=== PATIENT | female | born 1940 | race Two or more races ===

== ENCOUNTER 2022-05-17 18:26 | Inpatient (IN) | payer MEDICARE, BC ==
--- NOTE | 2022-05-17 18:51 | ED ---
Altered Mental Status HPI - General Stated Complaint: hypothermia Source: EMS Mode of arrival: EMS Limitations: altered mental status - History of Present Illness Initial Comments: This patient is an 82-year-old woman brought by EMS to have evaluation for altered mental status. The patient reportedly observed lying on the ground by a neighbor. Patient found by EMS personnel to be in wet clothing, attempting to crawl. Patient's not giving any verbal responses. The down time unknown however patient does feel cold to touch per ambulance personnel. MD Complaint: altered mental status -: unknown Severity: severe Consistency of Symptoms: constant Context: unknown - Related Data Home Medications Medication Instructions Recorded Confirmed Atorvastatin [Lipitor] 20 mg PO HS 05/17/22 05/17/22 Clopidogrel [Plavix] 75 mg PO DAILY 05/17/22 05/17/22 Furosemide [Lasix] 20 mg PO DAILY 05/17/22 05/17/22 carvediloL [Coreg] 6.25 mg PO BID-W/MEALS 05/17/22 05/17/22 lisinopriL [Zestril] 10 mg PO DAILY 05/17/22 05/17/22 Previous Rx's Medication Instructions Recorded ALPRAZolam [Xanax] 0.5 mg PO TID PRN #9 tablet 05/23/22 Acetaminophen Tab [Tylenol] 1,000 mg PO Q6HR PRN tab 05/23/22 Artificial Tears-Hypromellose 1 drops BOTH EYES Q4HR PRN ml 05/23/22 [Artificial Tear Drops] Ascorbic Acid [Vitamin C] 500 mg PO DAILY tab 05/23/22 Cholecalciferol [Vitamin D3 (10 10 mcg PO DAILY tab 05/23/22 Mcg = 400 Iu)] Famotidine [Pepcid] 20 mg PO BID tab 05/23/22 Folic Acid 1 mg PO DAILY tab 05/23/22 Psyllium Husk 100% [Metamucil 6 gm PO BID PRN packet 05/23/22 Packet] Sodium Chloride Tab 1 gm PO BID tab 05/23/22 Zinc Sulfate [Orazinc] 220 mg PO DAILY cap 05/23/22 metFORMIN HCL [Glucophage] 500 mg PO BID-W/MEALS tab 05/23/22 Allergies Allergy/AdvReac Type Severity Reaction Status Date / Time heparin AdvReac Swelling Verified 05/22/22 08:55 Review of Systems ROS Statement: Those systems with pertinent positive or pertinent negative responses have been documented in the HPI. ROS Other: All systems not noted in ROS Statement are negative. Limitations: ROS unobtainable due to patients medical condition General Exam Limitations: no limitations General appearance: obtunded, other (Patient arrives covered in blankets. Her clothing had been removed by EMS personnel as she was very wet. Patient not responding to questions or commands.) Head exam: Present: other (Patient has facial abrasions) Eye exam: Present: PERRL, EOMI, nystagmus. Absent: scleral icterus, conjunctival injection Neck exam: Present: normal inspection, other (In cervical collar) Respiratory exam: Present: rhonchi. Absent: wheezes, rales, stridor, accessory muscle use, decreased breath sounds, prolonged expiratory Cardiovascular Exam: Present: bradycardia, irregular rhythm, systolic murmur. Absent: diastolic murmur, rubs, gallop GI/Abdominal exam: Present: soft. Absent: distended, tenderness, guarding, rebound, rigid, mass Extremities exam: Present: full ROM, other (Abrasions). Absent: tenderness, pedal edema, calf tenderness Back exam: Present: normal inspection. Absent: vertebral tenderness Neurological exam: Present: altered. Absent: motor sensory deficit Expanded Eye Response: (4) open spontaneously Motor Response: (5) localizes to pain Verbal Response: incomprehensible sounds Skin exam: Present: mottled, abrasion, other (Patient is cold, skin is moist. There are multiple abrasions to all 4 extremities as well as abdomen and face.) Course Vital Signs 05/17/22 05/17/22 05/17/22 18:46 20:39 20:45 Temperature 79.9 F L 93.6 F L Pulse Rate 53 L 51 L 58 L Respiratory 18 11 L 17 Rate Blood Pressure 108/88 155/100 155/100 O2 Sat by Pulse 98 100 100 Oximetry 05/17/22 05/17/22 05/17/22 20:54 21:00 21:15 Temperature 84.4 F L Pulse Rate 57 L 61 63 Respiratory 18 19 21 Rate Blood Pressure 137/79 137/79 129/78 O2 Sat by Pulse 95 96 99 Oximetry 05/17/22 05/17/22 05/17/22 21:30 21:45 22:00 Temperature Pulse Rate 66 65 65 Respiratory 17 17 16 Rate Blood Pressure 137/69 111/67 131/60 O2 Sat by Pulse 96 100 85 L Oximetry 05/17/22 05/17/22 05/17/22 22:15 22:30 22:45 Temperature Pulse Rate 69 76 73 Respiratory 11 L 18 21 Rate Blood Pressure 90/60 91/53 113/68 O2 Sat by Pulse 97 96 96 Oximetry 05/17/22 05/17/22 05/17/22 23:00 23:14 23:15 Temperature 90.9 F L Pulse Rate 71 75 73 Respiratory 17 18 16 Rate Blood Pressure 104/68 100/64 100/64 O2 Sat by Pulse 98 94 L 96 Oximetry - Reevaluation(s) Reevaluation #1: 05/17/22 22:18 Patient's family member had arrived and stated that she had not been feeling well for number days prior to this episode. Patient reportedly having cough, generalized weakness and fatigue. She had been encouraged to take a covid test on Sunday but did not do so. Medical Decision Making - Lab Data Result diagrams: 05/23/22 06:49 05/23/22 06:49 Lab Results 05/17/22 05/17/22 05/17/22 Range/Units 19:08 19:08 19:08 WBC 4.1 (3.8-10.6) k/uL RBC 3.68 L (3.80-5.40) m/uL Hgb 12.7 (11.4-16.0) gm/dL Hct 34.0 (34.0-46.0) % MCV 92.3 (80.0-100.0) fL MCH 34.4 (25.0-35.0) pg MCHC 37.3 H (31.0-37.0) g/dL RDW 12.1 (11.5-15.5) % Plt Count 224 (150-450) k/uL MPV 7.1 Neutrophils % 79 % Lymphocytes % 9 % Monocytes % 9 % Eosinophils % 0 % Basophils % 2 % Neutrophils # 3.2 (1.3-7.7) k/uL Lymphocytes # 0.4 L (1.0-4.8) k/uL Monocytes # 0.4 (0-1.0) k/uL Eosinophils # 0.0 (0-0.7) k/uL Basophils # 0.1 (0-0.2) k/uL PT 12.1 H (9.0-12.0) sec INR 1.1 (<1.2) APTT 28.8 (22.0-30.0) sec Sodium 113 L* (137-145) mmol/L Potassium 4.7 (3.5-5.1) mmol/L Chloride 87 L (98-107) mmol/L Carbon Dioxide 17 L (22-30) mmol/L Anion Gap 9 mmol/L BUN 25 H (7-17) mg/dL Creatinine 0.64 (0.52-1.04) mg/dL Est GFR (CKD-EPI)AfAm >90 (>60 ml/min/1.73 sqM) Est GFR (CKD-EPI)NonAf 82 (>60 ml/min/1.73 sqM) Glucose 202 H (74-99) mg/dL Osmolality (280-301) mosm/kg Calcium 7.4 L (8.4-10.2) mg/dL Total Bilirubin 0.6 (0.2-1.3) mg/dL AST 38 H (14-36) U/L ALT 25 (4-34) U/L Alkaline Phosphatase 58 (38-126) U/L Creatine Kinase 634 H (30-135) U/L CK-MB (CK-2) (0.0-2.4) ng/mL Troponin I (0.000-0.034) ng/mL Total Protein 5.1 L (6.3-8.2) g/dL Albumin 3.1 L (3.5-5.0) g/dL Coronavirus (PCR) (Not Detectd) 05/17/22 05/17/22 05/17/22 Range/Units 19:08 19:08 21:39 WBC (3.8-10.6) k/uL RBC (3.80-5.40) m/uL Hgb (11.4-16.0) gm/dL Hct (34.0-46.0) % MCV (80.0-100.0) fL MCH (25.0-35.0) pg MCHC (31.0-37.0) g/dL RDW (11.5-15.5) % Plt Count (150-450) k/uL MPV Neutrophils % % Lymphocytes % % Monocytes % % Eosinophils % % Basophils % % Neutrophils # (1.3-7.7) k/uL Lymphocytes # (1.0-4.8) k/uL Monocytes # (0-1.0) k/uL Eosinophils # (0-0.7) k/uL Basophils # (0-0.2) k/uL PT (9.0-12.0) sec INR (<1.2) APTT (22.0-30.0) sec Sodium (137-145) mmol/L Potassium (3.5-5.1) mmol/L Chloride (98-107) mmol/L Carbon Dioxide (22-30) mmol/L Anion Gap mmol/L BUN (7-17) mg/dL Creatinine (0.52-1.04) mg/dL Est GFR (CKD-EPI)AfAm (>60 ml/min/1.73 sqM) Est GFR (CKD-EPI)NonAf (>60 ml/min/1.73 sqM) Glucose (74-99) mg/dL Osmolality 254 L (280-301) mosm/kg Calcium (8.4-10.2) mg/dL Total Bilirubin (0.2-1.3) mg/dL AST (14-36) U/L ALT (4-34) U/L Alkaline Phosphatase (38-126) U/L Creatine Kinase (30-135) U/L CK-MB (CK-2) 15.4 H (0.0-2.4) ng/mL Troponin I 0.018 (0.000-0.034) ng/mL Total Protein (6.3-8.2) g/dL Albumin (3.5-5.0) g/dL Coronavirus (PCR) Detected A (Not Detectd) - EKG Data -: EKG Interpreted by Oh EKG shows normal: intervals (QRS duration 178 ms, prolonged consistent with the left bundle-branch block.), QRS complexes ((Bundle-branch block pattern.) Interpretation: other (Underlying rhythm appears atrial fibrillation with slow ventricular response.) Critical Care Time Critical Care Time: Yes (45 minutes) Disposition Clinical Impression: Hyponatremia, Hypothermia, Altered mental status, Hyperglycemia, COVID-19 Disposition: ADMITTED IP TO THIS [facility] Condition: Critical Is patient prescribed a controlled substance at d/c from ED?: No
[2022-05-17 19:27] LABS: INR 1.1 (<1.2); Partial Thromboplastin Time 28.8 sec (22.0-30.0); Prothrombin Time 12.1 sec (9.0-12.0)
[2022-05-17 19:28] LABS: ALT 25 U/L (4-34); AST 38 U/L (14-36); African American GFR (CKD) >90 (>60 ml/min/1.73 sqM); Albumin 3.1 g/dL (3.5-5.0); Alkaline Phosphatase 58 U/L (38-126); Anion Gap 9 mmol/L; Blood Urea Nitrogen 25 mg/dL (7-17); Calcium 7.4 mg/dL (8.4-10.2); Carbon Dioxide 17 mmol/L (22-30); Chloride 87 mmol/L (98-107); Creatine Kinase 634 U/L (30-135); Glucose 202 mg/dL (74-99); Non-African American GFR(CKD) 82 (>60 ml/min/1.73 sqM); Potassium 4.7 mmol/L (3.5-5.1); Total Bilirubin 0.6 mg/dL (0.2-1.3); Total Protein 5.1 g/dL (6.3-8.2)
[2022-05-17 19:32] LABS: Basophils # (A) 0.1 k/uL (0-0.2); Basophils % (A) 2 %; Eosinophils % (A) 0 %; HGB 12.7 gm/dL (11.4-16.0); Lymphocytes # (A) 0.4 k/uL (1.0-4.8); Lymphocytes % (A) 9 %; MCH 34.4 pg (25.0-35.0); MCHC 37.3 g/dL (31.0-37.0); MCV 92.3 fL (80.0-100.0); Mean Platelet Volume 7.1; Monocytes # (A) 0.4 k/uL (0-1.0); Monocytes % (A) 9 %; Neutrophils # (A) 3.2 k/uL (1.3-7.7); Neutrophils % (A) 79 %; Platelet Count 224 k/uL (150-450); RBC 3.68 m/uL (3.80-5.40); RDW 12.1 % (11.5-15.5); WBC 4.1 k/uL (3.8-10.6)
[2022-05-17 19:46] LABS: Creatine Kinase MB 15.4 ng/mL (0.0-2.4); Troponin I 0.018 ng/mL (0.000-0.034)
[2022-05-17 19:48] LABS: Sodium 113 mmol/L (137-145)
[2022-05-17] MEDS ORDERED: SODIUM CHLORIDE 0.9% 1,000 ML IV STA (19:58)
[2022-05-17] MEDS ORDERED: SODIUM CHLORIDE 0.9% 1,000 ML IV ONE (19:58)
--- NOTE | 2022-05-17 20:18 | XR ---
EXAMINATION TYPE: XR chest 1V portable DATE OF EXAM: 05/17/2022 8:04 PM COMPARISON: None TECHNIQUE: XR chest 1V portable Portable AP radiograph of the chest. CLINICAL INDICATION:Female, 82 years old with history of altered mental status; FINDINGS: Lungs/Pleura: There is no evidence of pleural effusion, focal consolidation, or pneumothorax. Pulmonary vascularity: Pulmonary vascular congestion. Heart/mediastinum: Cardiomediastinal silhouette is enlarged and stable. Musculoskeletal: Degenerative changes of the shoulder joints. IMPRESSION: Cardiomegaly and mild pulmonary vascular congestion. Correlate with BNP for congestive heart failure.
--- NOTE | 2022-05-17 20:22 | CT ---
EXAMINATION TYPE: CT brain wo con for TPA CT DLP: 1580.8 mGycm, Automated exposure control for dose reduction was used. DATE OF EXAM: 05/17/2022 8:08 PM COMPARISON: None. CLINICAL INDICATION:Female, 82 years old with history of Neuro deficit, acute, stroke suspected, TECHNIQUE: Brain: Axial CT images of the brain were obtained with coronal and sagittal reformats created and rev iewed. Contrast used: None. Oral contrast used: None. FINDINGS: Brain: Extra-axial spaces: No abnormal extra-axial fluid collections. Ventricular system: Dilatation in proportion to cerebral atrophy. Cerebral parenchyma: Cerebral atrophy. No acute intraparenchymal hemorrhage or mass effect. The whitehead -white junction is well differentiated. Scattered hypoattenuating areas are seen within the white mat ter. Cerebellum: Unremarkable. Mass effect: No evidence of midline shift. Intracranial vasculature: unremarkable Soft tissues: Left frontal soft tissue edema. Calvarium/osseous structures: No depressed skull fracture. Paranasal sinuses and mastoid air cells: Mild scattered paranasal sinus disease. Visualized orbits: Bilateral aphakia IMPRESSION: 1. No acute intracranial process. 2. Nonspecific white matter changes, likely secondary to chronic small vessel ischemic disease. 3. Left frontal soft tissue edema.
--- NOTE | 2022-05-17 20:25 | CT ---
EXAMINATION TYPE: CT cervical spine wo con CT DLP: 1580.8 mGycm, Automated exposure control for dose reduction was used. DATE OF EXAM: 05/17/2022 8:10 PM COMPARISON: None CLINICAL INDICATION:Female, 82 years old with history of fall injury, found unresponsive TECHNIQUE: Axial CT images from the skull base to the inferior aspect of T2 we obtained without intra venous contrast. Coronal and sagittal reformatted images were also reviewed. FINDINGS: Fracture: None. Osseous structures: Multilevel degenerative disc disease changes with endplate spurring and disc oste ophyte complex's. Vertebral alignment: Alignment within normal limits. Spinal canal/Neural Foramina: No evidence of significant spinal canal narrowing. No evidence for sign ificant neural foraminal stenosis. Neck soft tissues: Prevertebral soft tissues are within normal limits. Other: The airway is patent. The lung apices are clear. IMPRESSION: 1. No evidence of cervical spine fracture. 2. Mild multilevel degenerative disc disease.
--- NOTE | 2022-05-17 20:52 | CT ---
EXAMINATION TYPE: CT angio head neck CT DLP: 1580.8 mGycm, Automated exposure control for dose reduction was used. DATE OF EXAM: 05/17/2022 8:32 PM COMPARISON: CT head same day. CLINICAL INDICATION:Female, 82 years old with history of Neuro deficit, acute, stroke suspected, foun d unresponsive TECHNIQUE: Axially acquired helical CT angiogram of the head and neck was obtained with contrast. Axi al images are supplemented with 3D reconstructions which [facility] NASCET criteria used. Contrast used:65ml mL of Isovue 370 with IV Contrast, Oral contrast used: None. FINDINGS: Motion limits evaluation. CTA HEAD: No evidence of acute intracranial hemorrhage, mass effect, or midline shift. The ventricles, sulci, a nd cisterns are unremarkable. The visualized portions of the internal carotid arteries, middle cerebral arteries, anterior cerebral arteries, and posterior cerebral arteries are patent. The basilar and vertebral arteries are patent. CTA NECK: Right Carotid System: The common carotid artery and external carotid artery are patent. The carotid bifurcation demonstrate s no evidence of hemodynamically significant stenosis. The remaining portions of the internal carotid artery demonstrate normal size without significant narrowing. Left Carotid System: The common carotid artery and external carotid artery are patent. The carotid bifurcation demonstrate s no evidence of hemodynamically significant stenosis. The remaining portions of the internal carotid artery demonstrate normal size without significant narrowing. Vertebral arteries are patent without evidence hemodynamically significant stenosis. There is a three-vessel aortic arch. The origins of the great vessels are patent. No evidence of hemo dynamically significant stenosis. IMPRESSION: 1. No evidence of dissection of the cervical internal carotid arteries or vertebral arteries or any e vidence of significant stenosis at the carotid bifurcations. 2. No evidence of intracranial high-grade stenosis or intracranial aneurysm.
[2022-05-17] MEDS ORDERED: NALOXONE 0.4 MG/ML 1 ML VIAL IV PRN (22:05)
[2022-05-17] MEDS ORDERED: ACETAMINOPHEN SUPPOSITORY 650 MG SUPP RECTAL PRN (22:05)
[2022-05-17] MEDS ORDERED: ARTIFICIAL TEARS-HYPROMELLOSE DROPS 15 ML BTL BOTH EYES PRN (22:05)
[2022-05-17 23:42] LABS: Glucose,Whole Blood 116 mg/dL (70-110)
[2022-05-18] MEDS ORDERED: SODIUM CHLORIDE 3%(HYPERTONIC) 500 ML IV SCH (01:00)
[2022-05-18] MEDS: HEPARIN SODIUM,PORCINE/PF 5,000 UNIT/0.5 ML SYRINGE SQ SCH ×4 (02:08→16:03)
[2022-05-18 04:17] LABS: Basophils % (A) 0 %; Eosinophils % (A) 0 %; HCT 34.5 % (34.0-46.0); HGB 12.3 gm/dL (11.4-16.0); Lymphocytes # (A) 0.2 k/uL (1.0-4.8); Lymphocytes % (A) 2 %; MCHC 35.6 g/dL (31.0-37.0); MCV 92.5 fL (80.0-100.0); Mean Platelet Volume 7.3; Monocytes # (A) 0.5 k/uL (0-1.0); Monocytes % (A) 7 %; Neutrophils % (A) 90 %; Platelet Count 265 k/uL (150-450); RBC 3.73 m/uL (3.80-5.40); RDW 12.1 % (11.5-15.5); WBC 7.7 k/uL (3.8-10.6)
[2022-05-18 04:44] LABS: AST 53 U/L (14-36); African American GFR (CKD) >90 (>60 ml/min/1.73 sqM); Albumin 2.9 g/dL (3.5-5.0); Alkaline Phosphatase 52 U/L (38-126); Blood Urea Nitrogen 25 mg/dL (7-17); Carbon Dioxide 19 mmol/L (22-30); Chloride 85 mmol/L (98-107); Glucose 69 mg/dL (74-99); Non-African American GFR(CKD) 85 (>60 ml/min/1.73 sqM); Total Bilirubin 0.6 mg/dL (0.2-1.3); Total Protein 4.7 g/dL (6.3-8.2)
[2022-05-18 04:46] LABS: ALT 28 U/L (4-34); Calcium 7.9 mg/dL (8.4-10.2)
[2022-05-18 04:53] LABS: Potassium,Urine Random 48.1 mmol/L (25.0-125.0)
[2022-05-18 04:59] LABS: Anion Gap 11 mmol/L; Sodium 115 mmol/L (137-145)
[2022-05-18 07:16] LABS: Glucose,Whole Blood 59 mg/dL (70-110)
[2022-05-18 07:35] LABS: Glucose,Whole Blood 67 mg/dL (70-110)
[2022-05-18] MEDS: LACTATED RINGERS 1,000 ML IV SCH ×3 (08:02→09:40)
--- NOTE | 2022-05-18 08:19 | HP ---
HISTORY AND PHYSICAL HISTORY OF PRESENT ILLNESS: An 82-year-old white female came to the EMS for altered mental status. She was found lying in ground by neighbor. She was hypothermic on admission, , attempted to crawl, not given any verbal responses, down time unknown, severe nature. She came in with a sodium 113, BUN is 25, creatinine 0.64. HOME MEDICATIONS: Include, 1. Plavix 75 mg daily. 2. Lasix 20 mg daily. 3. Aldactone 25 daily. 4. Coreg 6.25 b.i.d. 5. Zestril 10 daily. 6. Atorvastatin 20. 7. Metformin 500 b.i.d. REVIEW OF SYSTEMS: Unable to be attempted. The patient not responding. ALLERGIES: No known drug allergies. PHYSICAL EXAMINATION: VITAL SIGNS: Temperature 79.9 on admission, 84.4 later on at 2053, pulse is 57, respiratory rate 18 to 16, blood pressure is 108 to 137 over 88 to 79. She had not been feeling well for prior to this. GENERAL: She has cough, weakness, fatigue. Had COVID, untreated. She is obtunded, covered in blankets, does not respond. HEENT: Pupils equal, round, and reactive. NECK: Supple. LUNGS: No wheezes, rhonchi, or accessory muscles. CARDIOVASCULAR: Bradycardia, regular rhythm. GI: Soft, nontender. EXTREMITIES: Dry skin turgor. Cold extremities. BACK: She can move 4 extremities. NEUROLOGIC: She is altered, not responding . She has abrasions to skin. Is moaning due to multiple abrasions to all 4 extremities. ASSESSMENT: Severe hypothermia, probable post COVID, severe hyponatremia, history of hypertension, possible stents, protein calorie malnutrition, acute renal insufficiency. EKG shows prolonged QRS, left bundle-branch block, atrial fibrillation, RVR. Prognosis extremely guarded. She will be rehydrated. Treat for possible infection. Rehydrate her slowly with sodium replacement. Keep renal doctor to consult for that. Athletics Teacher as well as Neurology for altered mental status. Treat oxygen levels if they continue to draw and replace sodium level slowly. Prognosis guarded. Resume home medications. MMODL / IJN: [id number] /
[2022-05-18] MEDS: FAMOTIDINE 20 MG/2 ML VIAL IV SCH ×2 (08:22→19:54)
[2022-05-18 08:42] LABS: Glucose,Whole Blood 107 mg/dL (70-110)
[2022-05-18] MEDS: ALPRAZolam 0.5 MG TAB PO PRN ×2 (09:16→19:54)
[2022-05-18] MEDS: CLOPIDOGREL 75 MG TAB PO SCH (09:16)
[2022-05-18] MEDS: carvediloL 6.25 MG TAB PO SCH ×2 (09:39→17:08)
[2022-05-18] MEDS: lisinopriL 10 MG TAB PO SCH (09:40)
[2022-05-18 09:55] LABS: Appearance,Urine Clear (Clear); Bilirubin,Urine Negative (Negative); Blood,Urine Small (Negative); Color,Urine Yellow; Glucose,Urine (UA) Negative (Negative); Hyaline Casts,Urine 1 /lpf (0-2); Ketones,Urine 2+ (Negative); Leukocyte Esterase,Urine Negative (Negative); Mucus,Urine Rare /hpf; Nitrite,Urine Negative (Negative); Protein,Urine Trace (Negative); RBC,Urine 33 /hpf (0-5); Specific Gravity,Urine 1.035 (1.001-1.035); Squamous Epithelial Cell,Urine 1 /hpf (0-4); Urobilinogen,Urine <2.0 mg/dL (<2.0); WBC,Urine 5 /hpf (0-5)
--- NOTE | 2022-05-18 11:35 | P.CNPUL ---
History of Present Illness Consult date: 05/18/22 Requesting physician: Eddie Donato Reason for consult: other (ICU management) Chief complaint: Altered mental status History of present illness: This is an 82-year-old female with history of hypertension, coronary artery disease, diabetes, poor historian, patient presented to the ER yesterday shortly after she was found by her neighbor in her garage, on the ground, attempting to crawl, and she had wet clothing and multiple areas of bruises throughout her whole body, and superficial abrasions. Apparently the patient was very confused, she was hypothermic when she arrived to the ER with a temp of 84. Patient was also noted to have low sodium of 113. Patient is normally on diuretics including Lasix 20 mg daily and on Aldactone 25 mg daily, she is also on multiple cardiac meds including Lipitor, Plavix, Coreg, and Zestril. At any rate it is not clear how long with the patient down in the garage, however considering her altered mental status she had extensive scanning of her brain, and all came back nondiagnostic. Patient also had a CT angiogram of the head, came back unremarkable. Patient was admitted to the ICU mostly because of her hypothermia and her hyponatremia. I felt that her hyponatremia is hypovolemic in nature, patient had low sodium of 113, and she had a relatively elevated urine osmolality. Initially the patient was given 3% saline, however as she was noted to have relatively low blood pressure, we recommended stopping the 3% saline and she was given a liter of lactated Ringer's. Then her lactated Ringer's was changed to 75 mL per hour and follow up sodium this morning is 116. Patient will remain on lactated Ringer's at 50 mL per hour, and we will continue to monitor her sodium, no more 3% saline was given. In the meantime patient was tested for COVID-19 infection, and sure enough she tested positive. Supposedly the patient is vaccinated and boosted. Patient had no symptoms of shortness of breath, she had no pulmonary symptoms whatsoever, and her chest x- ray is basically relatively unremarkable. Hence this was an incidental COVID-19 positive finding Review of Systems ROS unobtainable: due to mental status Past Medical History History of Any Multi-Drug Resistant Organisms: None Reported Smoking Status: Never smoker Past Alcohol Use History: None Reported Past Drug Use History: None Reported Medications and Allergies Home Medications Medication Instructions Recorded Confirmed Type Atorvastatin [Lipitor] 20 mg PO HS 05/17/22 05/17/22 History Clopidogrel [Plavix] 75 mg PO DAILY 05/17/22 05/17/22 History Furosemide [Lasix] 20 mg PO DAILY 05/17/22 05/17/22 History Spironolactone [Aldactone] 25 mg PO DAILY 05/17/22 05/17/22 History carvediloL [Coreg] 6.25 mg PO BID-W/MEALS 05/17/22 05/17/22 History lisinopriL [Zestril] 10 mg PO DAILY 05/17/22 05/17/22 History metFORMIN HCL [Glucophage] 500 mg PO BID-W/MEALS 05/17/22 05/17/22 History Allergies Allergy/AdvReac Type Severity Reaction Status Date / Time No Known Allergies Allergy Unverified 05/17/22 21:05 Physical Exam Vitals: Vital Signs Temp Pulse Resp BP Pulse Ox 05/18/22 10:00 98.6 F 85 17 104/67 88 L 05/18/22 09:00 81 45 H 95/49 99 05/18/22 08:27 100 05/18/22 08:00 98.4 F 84 15 88/54 95 05/18/22 07:30 88 21 87/49 99 05/18/22 07:00 80 12 101/56 97 05/18/22 06:30 84 28 H 101/49 99 05/18/22 06:00 84 24 106/51 99 05/18/22 05:45 80 21 106/51 98 05/18/22 05:30 79 14 101/48 94 L 05/18/22 05:15 81 47 H 101/48 100 05/18/22 05:04 80 29 H 101/48 98 05/18/22 04:45 84 21 75/40 100 05/18/22 04:30 80 10 L 80/46 97 05/18/22 04:15 90 23 80/46 99 05/18/22 04:00 97.3 F L 79 17 87/50 100 05/18/22 03:45 81 18 87/50 98 05/18/22 03:30 97.0 F L 81 26 H 95/51 100 05/18/22 03:15 84 16 95/51 99 05/18/22 03:04 80 22 62/43 86 L 05/18/22 02:45 81 11 L 85/69 99 05/18/22 02:31 84 24 85/69 100 05/18/22 02:18 82 25 H 80/50 99 05/18/22 02:06 80 15 93/51 99 05/18/22 01:53 78 12 85/49 97 05/18/22 01:30 95.7 F L 72 18 87/49 90 L 05/18/22 01:15 80 15 72/47 100 05/18/22 01:00 76 20 87/53 98 05/18/22 00:45 80 49 H 72/51 99 05/18/22 00:30 85 26 H 92/59 100 05/18/22 00:15 75 10 L 92/59 98 05/18/22 00:00 95 F L 78 26 H 109/65 93 L 05/17/22 23:45 76 25 H 109/65 98 05/17/22 23:30 108/66 05/17/22 23:15 73 16 100/64 96 05/17/22 23:14 90.9 F L 75 18 100/64 94 L 05/17/22 23:00 71 17 104/68 98 05/17/22 22:45 73 21 113/68 96 05/17/22 22:30 76 18 91/53 96 05/17/22 22:15 69 11 L 90/60 97 05/17/22 22:00 65 16 131/60 85 L 05/17/22 21:45 65 17 111/67 100 05/17/22 21:30 66 17 137/69 96 05/17/22 21:15 63 21 129/78 99 05/17/22 21:00 61 19 137/79 96 05/17/22 20:54 84.4 F L 57 L 18 137/79 95 05/17/22 20:45 58 L 17 155/100 100 05/17/22 20:39 93.6 F L 51 L 11 L 155/100 100 05/17/22 18:46 79.9 F L 53 L 18 108/88 98 Intake and Output 05/17/22 05/18/22 05/18/22 22:59 06:59 14:59 Intake Total 100 1050 Output Total 655 305 Balance -555 745 Intake: IV 100 1050 Lactated Ringers 1,000 ml 50 @ 50 mls/hr IV .Q20H [facility] Rx#:[id number] Lactated Ringers 1,000 ml 1000 @ 999 mls/hr IV .Q1H1M [facility] Rx#:[id number] Sodium Chloride 3%( 100 0 Hypertonic) 500 ml @ 25 mls/hr IV .Q20H [facility] Rx#: [id number] Output: Urine 655 305 Other: Voiding Method Indwelling Catheter Indwelling Catheter Weight 65.771 kg 68.039 kg 68.039 kg Physical Exam: Revealed an 82-year-old female in no distress, on room air. Head: normocephalic. Multiple abrasions noted on her face. And throughout her whole body HEENT:[Neck is supple.] [No neck masses.] [No thyromegaly.] [No JVD.] Chest: [Clear throughout, no crackles, no rhonchi, no wheezes.] Cardiac Exam: Irregular irregular rhythm. [Normal S1 and S2, no S3 gallop, no murmur.] Abdomen: [Soft, nontender, no megaly, no rebound, no guarding, normal bowel sounds.] Extremities: [No clubbing, no edema, no cyanosis.] Neurological Exam: Patient is awake, she initially said they year is 1921, then she remembered is 2021., She also knew that she was at [facility]. Could not give me any details about her medical history. And who her doctor is. Obviously the patient is intermittently confused. Psychiatric: Anxious, flat affect, intermittently confused. Skin: Multiple bruises and abrasions noted throughout her whole body. Results - Laboratory Findings CBC and BMP: 05/18/22 03:25 05/18/22 10:25 PT/INR, D-dimer PT 12.1 sec (9.0-12.0) H 05/17/22 19:08 INR 1.1 (<1.2) 05/17/22 19:08 Abnormal lab findings: Abnormal Labs 05/17/22 05/17/22 05/17/22 19:08 19:08 19:08 RBC 3.68 L MCHC 37.3 H Lymphocytes # 0.4 L PT 12.1 H Sodium 113 L* Chloride 87 L Carbon Dioxide 17 L BUN 25 H Glucose 202 H POC Glucose (mg/dL) Osmolality Calcium 7.4 L AST 38 H Creatine Kinase 634 H CK-MB (CK-2) Total Protein 5.1 L Albumin 3.1 L Urine Protein Urine Ketones Urine Blood Urine RBC Urine Mucus Coronavirus (PCR) 05/17/22 05/17/22 05/17/22 19:08 19:08 21:39 RBC MCHC Lymphocytes # PT Sodium Chloride Carbon Dioxide BUN Glucose POC Glucose (mg/dL) Osmolality 254 L Calcium AST Creatine Kinase CK-MB (CK-2) 15.4 H Total Protein Albumin Urine Protein Urine Ketones Urine Blood Urine RBC Urine Mucus Coronavirus (PCR) Detected A 05/17/22 05/18/22 05/18/22 23:39 03:25 03:25 RBC 3.73 L MCHC Lymphocytes # 0.2 L PT Sodium 115 L* Chloride 85 L Carbon Dioxide 19 L BUN 25 H Glucose 69 L POC Glucose (mg/dL) 116 H Osmolality Calcium 7.9 L AST 53 H Creatine Kinase CK-MB (CK-2) Total Protein 4.7 L Albumin 2.9 L Urine Protein Urine Ketones Urine Blood Urine RBC Urine Mucus Coronavirus (PCR) 05/18/22 05/18/22 05/18/22 03:25 06:07 07:14 RBC MCHC Lymphocytes # PT Sodium 115 L* 116 L* Chloride Carbon Dioxide BUN Glucose POC Glucose (mg/dL) 59 L Osmolality Calcium AST Creatine Kinase CK-MB (CK-2) Total Protein Albumin Urine Protein Urine Ketones Urine Blood Urine RBC Urine Mucus Coronavirus (PCR) 05/18/22 05/18/22 05/18/22 07:34 09:20 10:25 RBC MCHC Lymphocytes # PT Sodium 116 L* Chloride Carbon Dioxide BUN Glucose POC Glucose (mg/dL) 67 L Osmolality Calcium AST Creatine Kinase CK-MB (CK-2) Total Protein Albumin Urine Protein Trace H Urine Ketones 2+ H Urine Blood Small H Urine RBC 33 H Urine Mucus Rare H Coronavirus (PCR) - Diagnostic Findings Chest x-ray: image reviewed (As noted in HPI) Assessment and Plan Assessment: Impression: Hypothermia secondary to fall and unable to get out of her garage for a number of hours./Unknown time. Hypovolemic hyponatremia Altered mental status consistent with acute metabolic encephalopathy COVID-19 infection, however she has no active pulmonary symptoms. History of benign essential hypertension History of congestive heart failure, maintained on diuretics. History of type 2 diabetes. Coronary arteriosclerosis. Dyslipidemia. Multiple abrasions and bruises secondary to fall Recommendation: Continue slow hydration and slow correction of her sodium, monitor sodium every 4 hours and address accordingly. Continue lactated Ringer's for now at 50 mL per hour, discontinue 3% saline. Continue to monitor in the ICU. Her hypothermia has been addressed and corrected accordingly. Discontinue antibiotics. No clear-cut evidence of infection. Expect mental status to improve after treatment of her hypothermia and hyponatremia Resume home meds except continue to hold diuretics for now. Continue Pepcid for the GI prophylaxis Xanax to be given for anxiety. COVID-19 cocktail for incidental finding of COVID-19 infection. Remind you patient is vaccinated and boosted student services rep to evaluate for placement Time with Patient: Greater than 30
[2022-05-18] MEDS: ASCORBIC ACID 500 MG TAB PO SCH (12:13)
[2022-05-18] MEDS: ZINC SULFATE 220 MG CAP PO SCH (12:13)
[2022-05-18 12:15] LABS: Glucose,Whole Blood 88 mg/dL (70-110)
[2022-05-18] MEDS: ACETAMINOPHEN TAB 500 MG TAB PO PRN ×2 (12:18→19:54)
--- NOTE | 2022-05-18 13:05 | P.NPCON ---
History of Present Illness - Reason for Consult hyponatremia - History of Present Illness Patient is an 82-year-old female with history of hypertension, diabetes, and dyslipidemia. She is admitted to the hospital with history of altered mentation. Patient was found on the floor by and the neighbor, she was hypothermic. Patient was noted to have a serum sodium of 113. It appears that patient had attempted to crawl for some time. No history of nausea vomiting abdominal pain or diarrhea Patient is maintained on Lasix and BONNIE inhibitor's at home Patient was maintained on 3% saline which was turned off this morning when serum sodium was 1:15. Currently she is on LR and last sodium was 116 Blood pressure has been low Review of Systems As per HPI, other systems negative Past Medical History History of Any Multi-Drug Resistant Organisms: None Reported Smoking Status: Never smoker Past Alcohol Use History: None Reported Past Drug Use History: None Reported Medications and Allergies Home Medications Medication Instructions Recorded Confirmed Type Atorvastatin [Lipitor] 20 mg PO HS 05/17/22 05/17/22 History Clopidogrel [Plavix] 75 mg PO DAILY 05/17/22 05/17/22 History Furosemide [Lasix] 20 mg PO DAILY 05/17/22 05/17/22 History Spironolactone [Aldactone] 25 mg PO DAILY 05/17/22 05/17/22 History carvediloL [Coreg] 6.25 mg PO BID-W/MEALS 05/17/22 05/17/22 History lisinopriL [Zestril] 10 mg PO DAILY 05/17/22 05/17/22 History metFORMIN HCL [Glucophage] 500 mg PO BID-W/MEALS 05/17/22 05/17/22 History Allergies Allergy/AdvReac Type Severity Reaction Status Date / Time No Known Allergies Allergy Unverified 05/17/22 21:05 Physical Exam Vitals: Vital Signs Temp Pulse Resp BP Pulse Ox 05/18/22 12:00 98.6 F 79 26 H 106/58 95 05/18/22 11:00 86 18 98/57 97 05/18/22 10:00 98.6 F 85 17 104/67 88 L 05/18/22 09:00 81 45 H 95/49 99 05/18/22 08:27 100 05/18/22 08:00 98.4 F 84 15 88/54 95 05/18/22 07:30 88 21 87/49 99 05/18/22 07:00 80 12 101/56 97 05/18/22 06:30 84 28 H 101/49 99 05/18/22 06:00 84 24 106/51 99 05/18/22 05:45 80 21 106/51 98 05/18/22 05:30 79 14 101/48 94 L 05/18/22 05:15 81 47 H 101/48 100 05/18/22 05:04 80 29 H 101/48 98 05/18/22 04:45 84 21 75/40 100 05/18/22 04:30 80 10 L 80/46 97 05/18/22 04:15 90 23 80/46 99 05/18/22 04:00 97.3 F L 79 17 87/50 100 05/18/22 03:45 81 18 87/50 98 05/18/22 03:30 97.0 F L 81 26 H 95/51 100 05/18/22 03:15 84 16 95/51 99 05/18/22 03:04 80 22 62/43 86 L 05/18/22 02:45 81 11 L 85/69 99 05/18/22 02:31 84 24 85/69 100 05/18/22 02:18 82 25 H 80/50 99 05/18/22 02:06 80 15 93/51 99 05/18/22 01:53 78 12 85/49 97 05/18/22 01:30 95.7 F L 72 18 87/49 90 L 05/18/22 01:15 80 15 72/47 100 05/18/22 01:00 76 20 87/53 98 05/18/22 00:45 80 49 H 72/51 99 05/18/22 00:30 85 26 H 92/59 100 05/18/22 00:15 75 10 L 92/59 98 05/18/22 00:00 95 F L 78 26 H 109/65 93 L 05/17/22 23:45 76 25 H 109/65 98 05/17/22 23:30 108/66 05/17/22 23:15 73 16 100/64 96 05/17/22 23:14 90.9 F L 75 18 100/64 94 L 05/17/22 23:00 71 17 104/68 98 05/17/22 22:45 73 21 113/68 96 10/19/22 22:30 76 18 91/53 96 05/17/22 22:15 69 11 L 90/60 97 05/17/22 22:00 65 16 131/60 85 L 05/17/22 21:45 65 17 111/67 100 05/17/22 21:30 66 17 137/69 96 05/17/22 21:15 63 21 129/78 99 05/17/22 21:00 61 19 137/79 96 05/17/22 20:54 84.4 F L 57 L 18 137/79 95 05/17/22 20:45 58 L 17 155/100 100 05/17/22 20:39 93.6 F L 51 L 11 L 155/100 100 05/17/22 18:46 79.9 F L 53 L 18 108/88 98 Intake and Output 05/17/22 05/18/22 05/18/22 22:59 06:59 14:59 Intake Total 100 1050 Output Total 655 369 Balance -555 681 Intake: IV 100 1050 Lactated Ringers 1,000 ml 50 @ 50 mls/hr IV .Q20H [facility] Rx#:[id number] Lactated Ringers 1,000 ml 1000 @ 999 mls/hr IV .Q1H1M [facility] Rx#:[id number] Sodium Chloride 3%( 100 0 Hypertonic) 500 ml @ 25 mls/hr IV .Q20H [facility] Rx#: [id number] Output: Urine 655 369 Other: Voiding Method Indwelling Catheter Indwelling Catheter Weight 65.771 kg 68.039 kg 68.039 kg Awake, not in any acute distress Alert and oriented 3 Examination of the heart S1 and S2 Examination of the lungs bilateral breath sounds are heard Abdomen is soft nontender Examination lower extremity shows significant discoloration and the toes with superficial ulcerations Results - Lab Results Most recent lab results Calcium 7.9 mg/dL (8.4-10.2) L 05/18/22 03:25 05/18/22 03:25 05/18/22 10:25 Assessment and Plan Assessment: 1. Hyponatremia appears to be hypovolemic currently improving with LR , status post 3% saline 2. Hypothermia 3. COVID-19 infection, currently on room air 4. History of hypertension currently blood pressure medications on hold as blood pressure is low Plan: Repeat sodium in 4 hours I will add sodium chloride tabs depending on repeat sodium Encourage increased oral intake Continue to hold off on antihypertensive medications for now Thank you for the consultation we will continue to follow the patient with you during her hospitalization
[2022-05-18] MEDS: CHOLECALCIFEROL 10 MCG (400 IU) TABLET PO SCH (13:13)
--- NOTE | 2022-05-18 13:16 | P.CNNES ---
History of Present Illness Consult date: 05/18/22 Requesting physician: Glen Shook Reason for Consult: Altered mental status History of Present Illness: Patient is an 82-year-old female, who came to the hospital by ambulance yesterday at 6:26 PM for a fall with subsequent syncope. [place] for ambulation. She was walking from her home to the barn garage, using her regular cane, to get a different cane from the garage, which she preferred. While she was heading to the garage, she felt weakness in the legs, became dizzy, and she took a very hard fall facedown on the cement ground. It was very wet, slippery and she was dizzy, couldn't get up. She laid there for a few hours, hoping and praying somebody would come and rescue her. After some time laying out in the cold, she passed out. Patient remembers the fall, and laying on the floor, with blood all over, until she passed out. Apparently patient's neighbors found her and called EMS. As per EMS flow sheet, when they arrived, found unresponsive by neighbors in her garage back behind her house. Looks like patient fell and was unable to get up and no one is sure how long she has been there. Patient was fully clothed with no shoes on and was soaked through her clothes due to the rain. Patient did not respond to her name and was laying prone on the rub floor, with no evidence of trauma to her head. Pupils are equal and reactive but sluggish. Patient appeared to have trouble breathing and was slow and shallow until she was turned over and her breathing improved. Patient's legs were covered and abrasions with a small laceration to her left leg at the [place] with light bleeding. Patient had some rash on her chest and buttocks and her skin was extremely cold. Patient was moving all her extremities but with no purposeful movement. C-collar and oxygen was placed. Patient did not speak at all. Patient was found behind her car and there were several search consultant blocks in the garage that were within kicking distance of patient. Patient's clothes were removed on the scene as they were soaked and was placed on a blanket. Her blood pressure was 142/110, pulse rate 40, respiration 12, temperature 80.0 axillary, blood sugar 234. When patient arrived, her blood pressure was 108/88, pulse rate 53 and her temperature was 79.9 Fahrenheit rectally. Patient was warmed. Subsequent temperatures were 93.6, 84.4, and most recent core body temperature is 98.4. Patient remains hypotensive with blood pressure 95/49. Lowest blood pressure was 62/43 at 3 AM today. CBC is normal, PT/PTT normal. Sodium was 113, BUN 25 creatinine 0.64. AST 38, normal ALT 25. Troponin is negative. Coronal virus PCR positive. UA is negative. CT head showed no acute intracranial process. Nonspecific white matter changes, likely secondary to chronic small vessel ischemic disease. I personally reviewed CT head, agree with the findings. CTA of head and neck revealed no evidence of dissection of the cervical internal carotid arteries or vertebral arteries, or any evidence of significant stenosis at the carotid bifurcations. No evidence of intracranial high-grade stenosis or intracranial aneurysm. EKG shows atrial fibrillation with slow ventricular response. CT of the cervical spine showed no fracture. Mild multilevel degenerative disc disease. Chest x-ray showed cardiomegaly and mild pulmonary vascular congestion. Correlate with BNP for CHF. Her home medications include metformin, Plavix 75 mg, Lipitor 20 mg, Aldactone 25 mg, Coreg, Lasix 20 mg and lisinopril 10 mg. Review of Systems Constitutional: Reports chills, Reports weakness Eyes: denies blurred vision, denies pain Ears, nose, mouth and throat: Denies headache, Denies sore throat Cardiovascular: Reports shortness of breath, Denies chest pain Respiratory: Reports cough, Reports dyspnea, Reports pain on inspiration Gastrointestinal: Denies abdominal pain, Denies diarrhea, Denies nausea, Denies vomiting Musculoskeletal: Reports muscle weakness, Reports myalgias Integumentary: Denies pruritus, Denies rash Neurological: Reports as per HPI Psychiatric: Reports anxiety Endocrine: Denies fatigue, Denies weight change Hematologic/Lymphatic: Reports easy bruising Past Medical History History of Any Multi-Drug Resistant Organisms: None Reported Smoking Status: Never smoker Past Alcohol Use History: None Reported Past Drug Use History: None Reported Medications and Allergies Home Medications Medication Instructions Recorded Confirmed Type Atorvastatin [Lipitor] 20 mg PO HS 05/17/22 05/17/22 History Clopidogrel [Plavix] 75 mg PO DAILY 05/17/22 05/17/22 History Furosemide [Lasix] 20 mg PO DAILY 05/17/22 05/17/22 History Spironolactone [Aldactone] 25 mg PO DAILY 05/17/22 05/17/22 History carvediloL [Coreg] 6.25 mg PO BID-W/MEALS 05/17/22 05/17/22 History lisinopriL [Zestril] 10 mg PO DAILY 05/17/22 05/17/22 History metFORMIN HCL [Glucophage] 500 mg PO BID-W/MEALS 05/17/22 05/17/22 History Allergies Allergy/AdvReac Type Severity Reaction Status Date / Time No Known Allergies Allergy Unverified 05/17/22 21:05 Physical Examination - Vital Signs Vital Signs: Vital Signs Temp Pulse Resp BP Pulse Ox 05/18/22 09:00 81 45 H 95/49 99 05/18/22 08:27 100 05/18/22 08:00 98.4 F 84 15 88/54 95 05/18/22 07:30 88 21 87/49 99 05/18/22 07:00 80 12 101/56 97 05/18/22 06:30 84 28 H 101/49 99 05/18/22 06:00 84 24 106/51 99 05/18/22 05:45 80 21 106/51 98 05/18/22 05:30 79 14 101/48 94 L 05/18/22 05:15 81 47 H 101/48 100 05/18/22 05:04 80 29 H 101/48 98 05/18/22 04:45 84 21 75/40 100 05/18/22 04:30 80 10 L 80/46 97 05/18/22 04:15 90 23 80/46 99 05/18/22 04:00 97.3 F L 79 17 87/50 100 05/18/22 03:45 81 18 87/50 98 05/18/22 03:30 97.0 F L 81 26 H 95/51 100 05/18/22 03:15 84 16 95/51 99 05/18/22 03:04 80 22 62/43 86 L 05/18/22 02:45 81 11 L 85/69 99 05/18/22 02:31 84 24 85/69 100 05/18/22 02:18 82 25 H 80/50 99 05/18/22 02:06 80 15 93/51 99 05/18/22 01:53 78 12 85/49 97 05/18/22 01:30 95.7 F L 72 18 87/49 90 L 05/18/22 01:15 80 15 72/47 100 05/18/22 01:00 76 20 87/53 98 05/18/22 00:45 80 49 H 72/51 99 05/18/22 00:30 85 26 H 92/59 100 05/18/22 00:15 75 10 L 92/59 98 05/18/22 00:00 95 F L 78 26 H 109/65 93 L 05/17/22 23:45 76 25 H 109/65 98 05/17/22 23:30 108/66 05/17/22 23:15 73 16 100/64 96 05/17/22 23:14 90.9 F L 75 18 100/64 94 L 05/17/22 23:00 71 17 104/68 98 05/17/22 22:45 73 21 113/68 96 05/17/22 22:30 76 18 91/53 96 05/17/22 22:15 69 11 L 90/60 97 05/17/22 22:00 65 16 131/60 85 L 05/17/22 21:45 65 17 111/67 100 05/17/22 21:30 66 17 137/69 96 05/17/22 21:15 63 21 129/78 99 05/17/22 21:00 61 19 137/79 96 05/17/22 20:54 84.4 F L 57 L 18 137/79 95 05/17/22 20:45 58 L 17 155/100 100 05/17/22 20:39 93.6 F L 51 L 11 L 155/100 100 05/17/22 18:46 79.9 F L 53 L 18 108/88 98 Intake and Output 05/17/22 05/18/22 05/18/22 22:59 06:59 14:59 Intake Total 100 1000 Output Total 655 240 Balance -555 760 Intake: IV 100 1000 Lactated Ringers 1,000 ml 1000 @ 999 mls/hr IV .Q1H1M ZUHAIR Rx#:[id number] Sodium Chloride 3%( 100 0 Hypertonic) 500 ml @ 25 mls/hr IV .Q20H ZUHAIR Rx#: [id number] Output: Urine 655 240 Other: Voiding Method Indwelling Catheter Weight 65.771 kg 68.039 kg Patient is an elderly female, laying in the bed, with warm blanket on. Patient is alert awake oriented to time place and person. She knows her name, age, date of and that she lives in the country in [place]. She knows that she is in [facility]. Patient able to provide very adequate history, remembers that her mother in 2000. Speech and language functions are normal. Patient can name and repeat very well. No aphasia or dysarthria. Attention, concentration and fund of knowledge is adequate. On cranial nerve examination, pupils are equal, round and reacting to light, visual timmons are full on confrontation, with no neglect on double simultaneous stimulation. Extraocular muscles are intact with no nystagmus. Face is symmetric, tongue protrudes to the midline. Palatal elevation and sensation normal, hearing and shoulder shrug normal, facial sensation normal. On muscle strength testing, patient is very sore proximally in both arms. She could not lift her arms up. Passive movement also produces a lot of pain. Her biceps, triceps and relief mate appears normal although with decreased effort. Her ankle dorsiflexion R normal hip flexion is 4+ with decreased effort due to pain and soreness. Deep tendon reflexes are symmetric 1 all over and plantars downgoing. Sensory to touch is equal with no neglect on double simultaneous stimulation. Cerebellar function showed no ataxia for [id number] testing. Could not perform [id number] testing because of soreness. Tone and bulk of muscles normal. Gait deferred.. On general examination, there is no carotid bruit or murmur, S1-S2 audible. Chest is clear on consultation. Abdomen is soft nontender. No organomegaly, bowel sounds present. Peripheral pulses are present. Mild peripheral edema. Patient has multiple scraps, bruises, abrasions over her feet, lower extremities. Also multiple bruises on the facial region. Results - Laboratory Findings CBC and BMP: 05/18/22 03:25 05/18/22 10:25 Abnormal Lab Findings: Abnormal Labs 05/17/22 05/17/22 05/17/22 19:08 19:08 19:08 RBC 3.68 L MCHC 37.3 H Lymphocytes # 0.4 L PT 12.1 H Sodium 113 L* Chloride 87 L Carbon Dioxide 17 L BUN 25 H Glucose 202 H POC Glucose (mg/dL) Osmolality Calcium 7.4 L AST 38 H Creatine Kinase 634 H CK-MB (CK-2) Total Protein 5.1 L Albumin 3.1 L Urine Protein Urine Ketones Urine Blood Urine RBC Urine Mucus Coronavirus (PCR) 05/17/22 05/17/22 05/17/22 19:08 19:08 21:39 RBC MCHC Lymphocytes # PT Sodium Chloride Carbon Dioxide BUN Glucose POC Glucose (mg/dL) Osmolality 254 L Calcium AST Creatine Kinase CK-MB (CK-2) 15.4 H Total Protein Albumin Urine Protein Urine Ketones Urine Blood Urine RBC Urine Mucus Coronavirus (PCR) Detected A 05/17/22 05/18/22 05/18/22 23:39 03:25 03:25 RBC 3.73 L MCHC Lymphocytes # 0.2 L PT Sodium 115 L* Chloride 85 L Carbon Dioxide 19 L BUN 25 H Glucose 69 L POC Glucose (mg/dL) 116 H Osmolality Calcium 7.9 L AST 53 H Creatine Kinase CK-MB (CK-2) Total Protein 4.7 L Albumin 2.9 L Urine Protein Urine Ketones Urine Blood Urine RBC Urine Mucus Coronavirus (PCR) 05/18/22 05/18/22 05/18/22 03:25 06:07 07:14 RBC MCHC Lymphocytes # PT Sodium 115 L* 116 L* Chloride Carbon Dioxide BUN Glucose POC Glucose (mg/dL) 59 L Osmolality Calcium AST Creatine Kinase CK-MB (CK-2) Total Protein Albumin Urine Protein Urine Ketones Urine Blood Urine RBC Urine Mucus Coronavirus (PCR) 05/18/22 05/18/22 07:34 09:20 RBC MCHC Lymphocytes # PT Sodium Chloride Carbon Dioxide BUN Glucose POC Glucose (mg/dL) 67 L Osmolality Calcium AST Creatine Kinase CK-MB (CK-2) Total Protein Albumin Urine Protein Trace H Urine Ketones 2+ H Urine Blood Small H Urine RBC 33 H Urine Mucus Rare H Coronavirus (PCR) Assessment and Plan Assessment: * Status post fall in cold weather, laying out in cold for hours (unknown duration) before passing out. * Hypothermia, resolved * Severe hyponatremia * Acute Covid-19 positive * Hypertension, rule out sepsis * Hypertension * Multiple abrasions and bruises secondary to fall. Plan: * Patient remembers falling, and also subsequently laying on the floor. It was not a seizure. * Patient's mentation at present is completely normal. Her encephalopathy has resolved. * Treatment of hyponatremia and other medical conditions as per IM and other specialties. * CTA of head and neck showed no stenosis or occlusion. * Check B12, folate, TSH. * No other neurological workup indicated. * Thank you for the consult.
[2022-05-18] MEDS: SODIUM CHLORIDE TAB 1 GM TAB PO SCH ×2 (16:01→19:54)
[2022-05-18 16:52] LABS: Glucose,Whole Blood 148 mg/dL (70-110)
[2022-05-18] MEDS: metFORMIN 500 MG TAB PO SCH (17:08)
[2022-05-18] MEDS: ATORVASTATIN 20 MG TAB PO SCH (19:54)
[2022-05-18 20:12] LABS: Glucose,Whole Blood 139 mg/dL (70-110)
[2022-05-19] MEDS: HEPARIN SODIUM,PORCINE/PF 5,000 UNIT/0.5 ML SYRINGE SQ SCH ×3 (00:15→16:39)
[2022-05-19] MEDS: ACETAMINOPHEN TAB 500 MG TAB PO PRN ×2 (03:46→11:46)
[2022-05-19] MEDS: ALPRAZolam 0.5 MG TAB PO PRN (03:46)
[2022-05-19] MEDS ORDERED: SODIUM CHLORIDE 3%(HYPERTONIC) 500 ML IV SCH (05:30)
[2022-05-19 06:43] LABS: Glucose,Whole Blood 96 mg/dL (70-110)
[2022-05-19] MEDS: carvediloL 6.25 MG TAB PO SCH ×2 (06:49→17:38)
[2022-05-19] MEDS: metFORMIN 500 MG TAB PO SCH ×2 (06:49→17:38)
[2022-05-19] MEDS: LACTATED RINGERS 1,000 ML IV SCH (07:24)
[2022-05-19] MEDS: ASCORBIC ACID 500 MG TAB PO SCH (08:20)
[2022-05-19] MEDS: CHOLECALCIFEROL 10 MCG (400 IU) TABLET PO SCH (08:21)
[2022-05-19] MEDS: ZINC SULFATE 220 MG CAP PO SCH (08:21)
[2022-05-19] MEDS: FAMOTIDINE 20 MG/2 ML VIAL IV SCH (08:21)
[2022-05-19] MEDS: SODIUM CHLORIDE TAB 1 GM TAB PO SCH ×2 (08:21→20:33)
[2022-05-19] MEDS: CLOPIDOGREL 75 MG TAB PO SCH (08:21)
[2022-05-19] MEDS: lisinopriL 10 MG TAB PO SCH (08:41)
[2022-05-19 10:46] LABS: Basophils % (A) 0 %; Eosinophils % (A) 0 %; HCT 26.7 % (34.0-46.0); Lymphocytes # (A) 0.2 k/uL (1.0-4.8); Lymphocytes % (A) 4 %; MCH 33.9 pg (25.0-35.0); MCHC 35.7 g/dL (31.0-37.0); Mean Platelet Volume 7.5; Monocytes # (A) 0.4 k/uL (0-1.0); Monocytes % (A) 9 %; Neutrophils # (A) 3.5 k/uL (1.3-7.7); Neutrophils % (A) 84 %; Platelet Count 212 k/uL (150-450); RBC 2.81 m/uL (3.80-5.40); RDW 12.4 % (11.5-15.5); WBC 4.1 k/uL (3.8-10.6)
[2022-05-19 10:47] LABS: HGB 9.5 gm/dL (11.4-16.0)
[2022-05-19 11:25] LABS: ALT 32 U/L (4-34); AST 57 U/L (14-36); African American GFR (CKD) >90 (>60 ml/min/1.73 sqM); Albumin 2.4 g/dL (3.5-5.0); Alkaline Phosphatase 47 U/L (38-126); Anion Gap 7 mmol/L; Blood Urea Nitrogen 14 mg/dL (7-17); Calcium 7.5 mg/dL (8.4-10.2); Carbon Dioxide 21 mmol/L (22-30); Chloride 89 mmol/L (98-107); Glucose 108 mg/dL (74-99); Non-African American GFR(CKD) 89 (>60 ml/min/1.73 sqM); Potassium 4.2 mmol/L (3.5-5.1); Total Bilirubin 0.6 mg/dL (0.2-1.3); Total Protein 4.1 g/dL (6.3-8.2)
[2022-05-19 11:31] LABS: Sodium 117 mmol/L (137-145)
--- NOTE | 2022-05-19 11:33 | P.PN ---
Subjective Patient is seen for follow-up for hyponatremia. Patient has been hypotensive and hypovolemic on admission. She was initially started on 3% saline which was discontinued and switched to LR. Patient's serum sodium dropped and she was restarted on 3% saline last night. Urine sodium was 77 and urine osmolality was 477. Patient is maintained on oral sodium chloride tabs. Overall she is doing much better. Objective - Vital Signs Vital signs: Vital Signs Temp 96.1 F L 05/19/22 10:00 Pulse 76 05/19/22 11:00 Resp 23 05/19/22 11:00 BP 122/72 05/19/22 11:00 Pulse Ox 96 05/19/22 11:00 FiO2 Intake & Output 05/18/22 05/19/22 05/19/22 18:59 06:59 18:59 Intake Total 3270 650 350 Output Total 629 560 165 Balance 2641 90 185 Weight 68.039 kg 67.2 kg Intake: IV 1350 650 100 Lactated Ringers 1,000 ml 350 650 @ 50 mls/hr IV .Q20H ZUHAIR Rx#:[id number] Lactated Ringers 1,000 ml 1000 @ 999 mls/hr IV .Q1H1M ZUHAIR Rx#:[id number] Sodium Chloride 3%( 0 100 Hypertonic) 500 ml @ 25 mls/hr IV .Q20H ZUHAIR Rx#: [id number] Oral 1920 250 Output: Urine 629 560 165 Other: Voiding Method Indwelling Catheter Indwelling Catheter Indwelling Catheter - Exam Awake, comfortable, not in any acute distress Examination of the heart S1 and S2 Examination of the lungs bilateral breath sounds are heard Abdomen is soft nontender Examination of lower extremity shows some discoloration and superficial ulceration in the toes. No edema noted COATINGS INSPECTOR exam grossly intact - Labs CBC & Chem 7: 05/19/22 10:05 05/19/22 06:00 Labs: Abnormal Lab Results - Last 24 Hours (Table) 05/18/22 05/18/22 05/18/22 Range/Units 14:54 16:50 19:22 RBC (3.80-5.40) m/uL Hgb (11.4-16.0) gm/dL Hct (34.0-46.0) % Lymphocytes # (1.0-4.8) k/uL Sodium 117 L* 118 L* (137-145) mmol/L POC Glucose (mg/dL) 148 H (70-110) mg/dL 05/18/22 05/18/22 05/19/22 Range/Units 20:10 22:38 01:56 RBC (3.80-5.40) m/uL Hgb (11.4-16.0) gm/dL Hct (34.0-46.0) % Lymphocytes # (1.0-4.8) k/uL Sodium 117 L* 116 L* (137-145) mmol/L POC Glucose (mg/dL) 139 H (70-110) mg/dL 05/19/22 05/19/22 Range/Units 06:00 10:05 RBC 2.81 L (3.80-5.40) m/uL Hgb 9.5 L D (11.4-16.0) gm/dL Hct 26.7 L (34.0-46.0) % Lymphocytes # 0.2 L (1.0-4.8) k/uL Sodium 117 L* (137-145) mmol/L POC Glucose (mg/dL) (70-110) mg/dL Microbiology - Last 24 Hours (Table) 05/17/22 19:08 Blood Culture - Preliminary Blood No Growth after 24 hours Assessment and Plan Assessment: 1. Hyponatremia appears to be hypovolemic, restarted on 3% saline last night as sodium had dropped with LR. Maintained on sodium chloride tabs which I will continue. Patient is also advised to increase oral intake particularly protein 2. Hypothermia 3. COVID-19 infection, currently on room air 4. History of hypertension currently blood pressure medications on hold as blood pressure is low Plan: Repeat sodium level today DC 3% saline if sodium is better than 117 Continue with sodium chloride tabs Add ensure/Boost and continue to encourage increased oral intake
[2022-05-19 11:54] LABS: Glucose,Whole Blood 103 mg/dL (70-110)
--- NOTE | 2022-05-19 12:33 | P.PN ---
Subjective Progress Note Date: 05/19/22 Principal diagnosis: Acute hypovolemic hyponatremia and COVID-19 infection This is an 82-year-old female with history of hypertension, coronary artery disease, diabetes, poor historian, patient presented to the ER yesterday shortly after she was found by her neighbor in her garage, on the ground, attempting to crawl, and she had wet clothing and multiple areas of bruises throughout her whole body, and superficial abrasions. Apparently the patient was very confused, she was hypothermic when she arrived to the ER with a temp of 84. Patient was also noted to have low sodium of 113. Patient is normally on diuretics including Lasix 20 mg daily and on Aldactone 25 mg daily, she is also on multiple cardiac meds including Lipitor, Plavix, Coreg, and Zestril. At any rate it is not clear how long with the patient down in the garage, however considering her altered mental status she had extensive scanning of her brain, and all came back nondiagnostic. Patient also had a CT angiogram of the head, came back unremarkable. Patient was admitted to the ICU mostly because of her hypothermia and her hyponatremia. I felt that her hyponatremia is hypovolemic in nature, patient had low sodium of 113, and she had a relatively elevated urine osmolality. Initially the patient was given 3% saline, however as she was noted to have relatively low blood pressure, we recommended stopping the 3% saline and she was given a liter of lactated Ringer's. Then her lactated Ringer's was changed to 75 mL per hour and follow up sodium this morning is 116. Patient will remain on lactated Ringer's at 50 mL per hour, and we will continue to monitor her sodium, no more 3% saline was given. In the meantime patient was tested for COVID-19 infection, and sure enough she tested positive. Supposedly the patient is vaccinated and boosted. Patient had no symptoms of shortness of breath, she had no pulmonary symptoms whatsoever, and her chest x- ray is basically relatively unremarkable. Hence this was an incidental COVID-19 positive finding Patient was reevaluated today on 05/19/22, remains in the ICU, sodium remains low, today is 117, hence the patient was seen by nephrology and she is back on 3% saline. She is also on oral sodium tablets. Clinically the patient is feeling better, she is not in any distress, she continues to hold relatively low temperature, today I'm recommending thyroid profile and a serum cortisol level. Her cortisol level came back normal/12 and her thyroid profile is pending her WBC count is 4.1 hemoglobin is 9.5, electrolytes are normal except for low sodium of 117 renal profile is normal Objective - Vital Signs Vital signs: Vital Signs Temp 96.1 F L 05/19/22 10:00 Pulse 76 05/19/22 11:00 Resp 23 05/19/22 11:00 BP 122/72 05/19/22 11:00 Pulse Ox 96 05/19/22 11:00 FiO2 Intake & Output 05/18/22 05/19/22 05/19/22 18:59 06:59 18:59 Intake Total 3270 650 350 Output Total 629 560 165 Balance 2641 90 185 Weight 68.039 kg 67.2 kg Intake: IV 1350 650 100 Lactated Ringers 1,000 ml 350 650 @ 50 mls/hr IV .Q20H ZUHAIR Rx#:[id number] Lactated Ringers 1,000 ml 1000 @ 999 mls/hr IV .Q1H1M ZUHAIR Rx#:[id number] Sodium Chloride 3%( 0 100 Hypertonic) 500 ml @ 25 mls/hr IV .Q20H ZUHAIR Rx#: [id number] Oral 1920 250 Output: Urine 629 560 165 Other: Voiding Method Indwelling Catheter Indwelling Catheter Indwelling Catheter - Exam Physical Exam: Revealed an 82-year-old female in no distress, on room air. Head: normocephalic. Multiple abrasions noted on her face. And throughout her whole body HEENT:[Neck is supple.] [No neck masses.] [No thyromegaly.] [No JVD.] Chest: [Clear throughout, no crackles, no rhonchi, no wheezes.] Cardiac Exam: Irregular irregular rhythm. [Normal S1 and S2, no S3 gallop, no murmur.] Abdomen: [Soft, nontender, no megaly, no rebound, no guarding, normal bowel sounds.] Extremities: [No clubbing, no edema, no cyanosis.] Neurological Exam: Alert oriented 3, no gross focal deficits. Psychiatric: Less anxious today, normal affect, normal mental status Skin: Multiple bruises and abrasions noted throughout her whole body. - Labs CBC & Chem 7: 05/19/22 10:05 05/19/22 10:05 Labs: Abnormal Lab Results - Last 24 Hours (Table) 05/18/22 05/18/22 05/18/22 Range/Units 14:54 16:50 19:22 RBC (3.80-5.40) m/uL Hgb (11.4-16.0) gm/dL Hct (34.0-46.0) % Lymphocytes # (1.0-4.8) k/uL Sodium 117 L* 118 L* (137-145) mmol/L Chloride (98-107) mmol/L Carbon Dioxide (22-30) mmol/L Creatinine (0.52-1.04) mg/dL Glucose (74-99) mg/dL POC Glucose (mg/dL) 148 H (70-110) mg/dL Calcium (8.4-10.2) mg/dL AST (14-36) U/L Total Protein (6.3-8.2) g/dL Albumin (3.5-5.0) g/dL 05/18/22 05/18/22 05/19/22 Range/Units 20:10 22:38 01:56 RBC (3.80-5.40) m/uL Hgb (11.4-16.0) gm/dL Hct (34.0-46.0) % Lymphocytes # (1.0-4.8) k/uL Sodium 117 L* 116 L* (137-145) mmol/L Chloride (98-107) mmol/L Carbon Dioxide (22-30) mmol/L Creatinine (0.52-1.04) mg/dL Glucose (74-99) mg/dL POC Glucose (mg/dL) 139 H (70-110) mg/dL Calcium (8.4-10.2) mg/dL AST (14-36) U/L Total Protein (6.3-8.2) g/dL Albumin (3.5-5.0) g/dL 05/19/22 05/19/22 05/19/22 Range/Units 06:00 10:05 10:05 RBC 2.81 L (3.80-5.40) m/uL Hgb 9.5 L D (11.4-16.0) gm/dL Hct 26.7 L (34.0-46.0) % Lymphocytes # 0.2 L (1.0-4.8) k/uL Sodium 117 L* 117 L* (137-145) mmol/L Chloride 89 L (98-107) mmol/L Carbon Dioxide 21 L (22-30) mmol/L Creatinine 0.50 L (0.52-1.04) mg/dL Glucose 108 H (74-99) mg/dL POC Glucose (mg/dL) (70-110) mg/dL Calcium 7.5 L (8.4-10.2) mg/dL AST 57 H (14-36) U/L Total Protein 4.1 L (6.3-8.2) g/dL Albumin 2.4 L (3.5-5.0) g/dL Microbiology - Last 24 Hours (Table) 05/17/22 19:08 Blood Culture - Preliminary Blood No Growth after 24 hours Assessment and Plan Assessment: Impression: Hypovolemic hyponatremia Altered mental status consistent with acute metabolic encephalopathy, improving since yesterday COVID-19 infection, however she has no active pulmonary symptoms. History of benign essential hypertension History of congestive heart failure, maintained on diuretics. History of type 2 diabetes. Coronary arteriosclerosis. Dyslipidemia. Multiple abrasions and bruises secondary to fall Recommendation: Hyponatremia is being addressed by nephrology, patient is now on 3% saline. Continue to monitor in the ICU. Until her sodium is up to 123. Or higher Continue to hold diuretics for now. Continue Pepcid for the GI prophylaxis Continue Xanax Continue COVID-19 cocktail We will continue to follow Time with Patient: Less than 30
[2022-05-19 16:37] LABS: Glucose,Whole Blood 124 mg/dL (70-110)
[2022-05-19 20:33] LABS: Glucose,Whole Blood 139 mg/dL (70-110)
[2022-05-19] MEDS: ATORVASTATIN 20 MG TAB PO SCH (20:33)
[2022-05-19] MEDS: FAMOTIDINE 20 MG TAB PO SCH (20:33)
--- NOTE | 2022-05-19 21:47 | PN ---
PROGRESS NOTE SUBJECTIVE: White female, remains in the ICU. She has multiple excoriations or bruising and superficial abrasions over the anterior legs in the knees, her facial area, her arms. She came in with severe hypothermia and was placed in the ICU. She had been re-warmed up to the room temperature. She is saturating in the high 90s on 2 to 3 L. She had recent COVID with severe dehydration and prerenal azotemia. She is being rehydrated and re-warmed. ASSESSMENT: 1. Severe hypothermia. 2. COVID-19. 3. Severe prerenal azotemia. 4. Possible sepsis. PLAN: Continue with current treatment in the ICU. Treat for COVID. Rehydrate. Treat abrasions. Treat malnutrition and protein-calorie malnutrition. Prognosis is extremely guarded. The patient remains in the ICU. MMODL / IJN: [id number] /
[2022-05-19] MEDS ORDERED: FUROSEMIDE 10 MG/ML 4 ML VIAL IV STA (23:32)
--- NOTE | 2022-05-20 00:17 | PN ---
PROGRESS NOTE SUBJECTIVE: Acute hypovolemic hyponatremic, COVID-19 infection, came in with hypothermia, which has been fixed. She has multiple abrasions and bruising over her body. She remains in ICU. Her sodium remains low, it was 111 on admission, now is 117. Nephrology put her on 3% saline, oral sodium tablets. She is holding relatively low temperatures today. We are going to do a cortisol and thyroid level on her. Hemoglobin is 9.3, white count 4.1, sodium 117, potassium 4.2. OBJECTIVE: CARDIOVASCULAR: S1, S2. ABDOMEN: Soft. EXTREMITIES: No cyanosis, clubbing, or edema. NEUROLOGIC: Cranial nerves intact. PSYCH: Fair mood and affect. HEENT: Normocephalic, atraumatic. ASSESSMENT: Hypovolemic hyponatremia, altered mental status, metabolic encephalopathy with COVID-19 and severe hyponatremia is the cause. Hyponatremia secondary to dehydration, coronary atherosclerosis, dyslipidemia, multiple abrasions and bruising, history of congestive heart failure, hypertension, type 2 diabetes. 3% saline. Monitor in ICU until sodium is 123 or above. Continue her Pepcid, Xanax, COVID-19 cocktail. Hold diuretics due to hyponatremia. Prognosis guarded. Please see further orders in ICU. MMODL / IJN: [id number] /
[2022-05-20] MEDS: ALPRAZolam 0.5 MG TAB PO PRN (01:47)
[2022-05-20 06:12] LABS: Basophils % (A) 0 %; Eosinophils % (A) 1 %; HCT 30.8 % (34.0-46.0); Lymphocytes # (A) 0.3 k/uL (1.0-4.8); Lymphocytes % (A) 6 %; MCHC 35.8 g/dL (31.0-37.0); MCV 95.1 fL (80.0-100.0); Mean Platelet Volume 7.5; Monocytes # (A) 0.4 k/uL (0-1.0); Monocytes % (A) 8 %; Neutrophils # (A) 3.6 k/uL (1.3-7.7); Neutrophils % (A) 82 %; Platelet Count 237 k/uL (150-450); RBC 3.24 m/uL (3.80-5.40); RDW 12.7 % (11.5-15.5); WBC 4.3 k/uL (3.8-10.6)
[2022-05-20 06:30] LABS: ALT 37 U/L (4-34); AST 45 U/L (14-36); African American GFR (CKD) >90 (>60 ml/min/1.73 sqM); Albumin 2.7 g/dL (3.5-5.0); Alkaline Phosphatase 52 U/L (38-126); Anion Gap 6 mmol/L; Blood Urea Nitrogen 12 mg/dL (7-17); Calcium 7.7 mg/dL (8.4-10.2); Carbon Dioxide 27 mmol/L (22-30); Chloride 88 mmol/L (98-107); Glucose 96 mg/dL (74-99); Non-African American GFR(CKD) >90 (>60 ml/min/1.73 sqM); Sodium 121 mmol/L (137-145); Total Bilirubin 0.8 mg/dL (0.2-1.3); Total Protein 4.5 g/dL (6.3-8.2)
[2022-05-20 06:35] LABS: Glucose,Whole Blood 63 mg/dL (70-110)
[2022-05-20 07:08] LABS: Glucose,Whole Blood 77 mg/dL (70-110)
[2022-05-20] MEDS: carvediloL 6.25 MG TAB PO SCH ×2 (07:10→17:10)
[2022-05-20] MEDS: HEPARIN SODIUM,PORCINE/PF 5,000 UNIT/0.5 ML SYRINGE SQ SCH ×4 (08:09→23:34)
[2022-05-20] MEDS: PSYLLIUM HUSK 100% 6 GM PACKET PO PRN (08:10)
[2022-05-20] MEDS: SODIUM CHLORIDE TAB 1 GM TAB PO SCH ×2 (08:10→20:40)
[2022-05-20] MEDS: CLOPIDOGREL 75 MG TAB PO SCH (08:10)
[2022-05-20] MEDS: FAMOTIDINE 20 MG TAB PO SCH ×2 (08:10→20:40)
[2022-05-20] MEDS: CHOLECALCIFEROL 10 MCG (400 IU) TABLET PO SCH (08:10)
[2022-05-20] MEDS: lisinopriL 10 MG TAB PO SCH (08:10)
[2022-05-20] MEDS: ASCORBIC ACID 500 MG TAB PO SCH (08:10)
[2022-05-20] MEDS: ZINC SULFATE 220 MG CAP PO SCH (08:10)
[2022-05-20] MEDS: metFORMIN 500 MG TAB PO SCH ×2 (09:20→17:10)
--- NOTE | 2022-05-20 09:40 | P.PN ---
Subjective Patient is seen in follow-up for hyponatremia. Patient received a dose of IV Lasix last night. Sodium level improved to 121 this morning. Urine output improved post IV Lasix but the last 2 hours has been about 40 mL an hour. Oral intake is just fair. Blood pressure stable. Vital signs are stable. General: Awake. HEENT: Bruising noted. On nasal cannula. LUNGS: Breath sounds decreased. HEART: Rate and Rhythm are regular. ABDOMEN: Soft, no distention. EXTREMITITES: 1+ edema. Generalized bruising noted. Objective - Vital Signs Vital signs: Vital Signs Temp 98.0 F 05/20/22 08:00 Pulse 78 05/20/22 08:00 Resp 18 05/20/22 08:00 BP 139/65 05/20/22 08:00 Pulse Ox 94 L 05/20/22 08:00 FiO2 Intake & Output 05/19/22 05/20/22 05/20/22 18:59 06:59 18:59 Intake Total 955 100 Output Total 395 1535 155 Balance 560 -1435 -155 Weight 67.5 kg Intake: IV 125 Sodium Chloride 3%( 125 Hypertonic) 500 ml @ 25 mls/hr IV .Q20H [facility] Rx#: [id number] Oral 830 100 Output: Urine 395 1535 155 Other: Voiding Method Indwelling Catheter Indwelling Catheter - Labs CBC & Chem 7: 05/20/22 05:43 05/20/22 05:43 Labs: Abnormal Lab Results - Last 24 Hours (Table) 05/19/22 05/19/22 05/19/22 Range/Units 10:05 10:05 12:19 RBC 2.81 L (3.80-5.40) m/uL Hgb 9.5 L D (11.4-16.0) gm/dL Hct 26.7 L (34.0-46.0) % Lymphocytes # 0.2 L (1.0-4.8) k/uL Sodium 117 L* 119 L* (137-145) mmol/L Chloride 89 L (98-107) mmol/L Carbon Dioxide 21 L (22-30) mmol/L Creatinine 0.50 L (0.52-1.04) mg/dL Glucose 108 H (74-99) mg/dL POC Glucose (mg/dL) (70-110) mg/dL Calcium 7.5 L (8.4-10.2) mg/dL AST 57 H (14-36) U/L ALT (4-34) U/L Total Protein 4.1 L (6.3-8.2) g/dL Albumin 2.4 L (3.5-5.0) g/dL 05/19/22 05/19/22 05/19/22 Range/Units 16:35 18:18 20:21 RBC (3.80-5.40) m/uL Hgb (11.4-16.0) gm/dL Hct (34.0-46.0) % Lymphocytes # (1.0-4.8) k/uL Sodium 119 L* (137-145) mmol/L Chloride (98-107) mmol/L Carbon Dioxide (22-30) mmol/L Creatinine (0.52-1.04) mg/dL Glucose (74-99) mg/dL POC Glucose (mg/dL) 124 H 139 H (70-110) mg/dL Calcium (8.4-10.2) mg/dL AST (14-36) U/L ALT (4-34) U/L Total Protein (6.3-8.2) g/dL Albumin (3.5-5.0) g/dL 05/19/22 05/20/22 05/20/22 Range/Units 21:38 05:43 05:43 RBC 3.24 L (3.80-5.40) m/uL Hgb 11.0 L (11.4-16.0) gm/dL Hct 30.8 L (34.0-46.0) % Lymphocytes # 0.3 L (1.0-4.8) k/uL Sodium 119 L* 121 L (137-145) mmol/L Chloride 88 L (98-107) mmol/L Carbon Dioxide (22-30) mmol/L Creatinine 0.45 L (0.52-1.04) mg/dL Glucose (74-99) mg/dL POC Glucose (mg/dL) (70-110) mg/dL Calcium 7.7 L (8.4-10.2) mg/dL AST 45 H (14-36) U/L ALT 37 H (4-34) U/L Total Protein 4.5 L (6.3-8.2) g/dL Albumin 2.7 L (3.5-5.0) g/dL 05/20/22 Range/Units 06:23 RBC (3.80-5.40) m/uL Hgb (11.4-16.0) gm/dL Hct (34.0-46.0) % Lymphocytes # (1.0-4.8) k/uL Sodium (137-145) mmol/L Chloride (98-107) mmol/L Carbon Dioxide (22-30) mmol/L Creatinine (0.52-1.04) mg/dL Glucose (74-99) mg/dL POC Glucose (mg/dL) 63 L (70-110) mg/dL Calcium (8.4-10.2) mg/dL AST (14-36) U/L ALT (4-34) U/L Total Protein (6.3-8.2) g/dL Albumin (3.5-5.0) g/dL Microbiology - Last 24 Hours (Table) 05/17/22 19:08 Blood Culture - Preliminary Blood No Growth after 48 hours Assessment and Plan Plan: Assessment: 1. Hyponatremia. Slightly hypervolemic. 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 Urine sodium 77 and urine osmolality 477. TSH and cortisol normal. 2. Status post fall. 3. COVID-19 infection. 4. Benign hypertension. Controlled. Plan: 1200 mL fluid resection. Encouraged oral intake, particularly protein. Maintain sodium chloride tabs. Add IV Lasix 20 mg twice daily. Repeat sodium level at noon.
[2022-05-20] MEDS: FUROSEMIDE 10 MG/ML 2 ML VIAL IV SCH ×2 (09:48→20:40)
--- NOTE | 2022-05-20 10:57 | P.PN ---
Subjective Progress Note Date: 05/19/22 Patient was seen for follow-up. Patient was asleep. On waking up, patient offers no complaints. Denies headache. No new neurological symptoms. Patient is laying comfortably. Bruises have improved. Objective - Vital Signs Vital signs: Vital Signs Temp 97.5 F L 05/19/22 12:00 Pulse 76 05/19/22 19:00 Resp 13 05/19/22 19:00 BP 137/68 05/19/22 19:00 Pulse Ox 96 05/19/22 19:00 FiO2 Intake & Output 05/19/22 05/19/22 05/20/22 06:59 18:59 06:59 Intake Total 650 955 100 Output Total 560 395 25 Balance 90 560 75 Weight 67.2 kg Intake: IV 650 125 Lactated Ringers 1,000 ml 650 @ 50 mls/hr IV .Q20H [facility] Rx#:[id number] Sodium Chloride 3%( 125 Hypertonic) 500 ml @ 25 mls/hr IV .Q20H [facility] Rx#: [id number] Oral 830 100 Output: Urine 560 395 25 Other: Voiding Method Indwelling Catheter Indwelling Catheter - Exam As above. Detail examination deferred. - Labs CBC & Chem 7: 05/20/22 05:43 05/20/22 05:43 Labs: Abnormal Lab Results - Last 24 Hours (Table) 05/18/22 05/18/22 05/18/22 Range/Units 19:22 20:10 22:38 RBC (3.80-5.40) m/uL Hgb (11.4-16.0) gm/dL Hct (34.0-46.0) % Lymphocytes # (1.0-4.8) k/uL Sodium 118 L* 117 L* (137-145) mmol/L Chloride (98-107) mmol/L Carbon Dioxide (22-30) mmol/L Creatinine (0.52-1.04) mg/dL Glucose (74-99) mg/dL POC Glucose (mg/dL) 139 H (70-110) mg/dL Calcium (8.4-10.2) mg/dL AST (14-36) U/L Total Protein (6.3-8.2) g/dL Albumin (3.5-5.0) g/dL 05/19/22 05/19/2222 Range/Units 01:56 06:00 10:05 RBC (3.80-5.40) m/uL Hgb (11.4-16.0) gm/dL Hct (34.0-46.0) % Lymphocytes # (1.0-4.8) k/uL Sodium 116 L* 117 L* 117 L* (137-145) mmol/L Chloride 89 L (98-107) mmol/L Carbon Dioxide 21 L (22-30) mmol/L Creatinine 0.50 L (0.52-1.04) mg/dL Glucose 108 H (74-99) mg/dL POC Glucose (mg/dL) (70-110) mg/dL Calcium 7.5 L (8.4-10.2) mg/dL AST 57 H (14-36) U/L Total Protein 4.1 L (6.3-8.2) g/dL Albumin 2.4 L (3.5-5.0) g/dL 05/19/22 05/19/22 05/19/22 Range/Units 10:05 12:19 16:35 RBC 2.81 L (3.80-5.40) m/uL Hgb 9.5 L D (11.4-16.0) gm/dL Hct 26.7 L (34.0-46.0) % Lymphocytes # 0.2 L (1.0-4.8) k/uL Sodium 119 L* (137-145) mmol/L Chloride (98-107) mmol/L Carbon Dioxide (22-30) mmol/L Creatinine (0.52-1.04) mg/dL Glucose (74-99) mg/dL POC Glucose (mg/dL) 124 H (70-110) mg/dL Calcium (8.4-10.2) mg/dL AST (14-36) U/L Total Protein (6.3-8.2) g/dL Albumin (3.5-5.0) g/dL 05/19/22 Range/Units 18:18 RBC (3.80-5.40) m/uL Hgb (11.4-16.0) gm/dL Hct (34.0-46.0) % Lymphocytes # (1.0-4.8) k/uL Sodium 119 L* (137-145) mmol/L Chloride (98-107) mmol/L Carbon Dioxide (22-30) mmol/L Creatinine (0.52-1.04) mg/dL Glucose (74-99) mg/dL POC Glucose (mg/dL) (70-110) mg/dL Calcium (8.4-10.2) mg/dL AST (14-36) U/L Total Protein (6.3-8.2) g/dL Albumin (3.5-5.0) g/dL Microbiology - Last 24 Hours (Table) 05/17/22 19:08 Blood Culture - Preliminary Blood No Growth after 24 hours Assessment and Plan Assessment: * Status post fall in cold weather, laying out in cold for hours (unknown duration) before passing out. * Hypothermia, resolved * Severe hyponatremia, improving * Acute Covid-19 positive * Hypotension, rule out sepsis, now improved. * History of Hypertension * Multiple abrasions and bruises secondary to fall. Plan: * Patient remembers falling, and also subsequently laying on the floor. It was not a seizure. * Patient's mentation at present is completely normal. Her encephalopathy has resolved. * Treatment of hyponatremia and other medical conditions as per IM and other specialties. Sodium persisting 119. * CTA of head and neck showed no stenosis or occlusion. * Await B12, folate, TSH 0.645 normal. * No other neurological workup indicated.
--- NOTE | 2022-05-20 11:14 | P.PN ---
Subjective Progress Note Date: 05/20/22 Principal diagnosis: Acute hypovolemic hyponatremia and COVID-19 infection This is an 82-year-old female with history of hypertension, coronary artery disease, diabetes, poor historian, patient presented to the ER yesterday shortly after she was found by her neighbor in her garage, on the ground, attempting to crawl, and she had wet clothing and multiple areas of bruises throughout her whole body, and superficial abrasions. Apparently the patient was very confused, she was hypothermic when she arrived to the ER with a temp of 84. Patient was also noted to have low sodium of 113. Patient is normally on diuretics including Lasix 20 mg daily and on Aldactone 25 mg daily, she is also on multiple cardiac meds including Lipitor, Plavix, Coreg, and Zestril. At any rate it is not clear how long with the patient down in the garage, however considering her altered mental status she had extensive scanning of her brain, and all came back nondiagnostic. Patient also had a CT angiogram of the head, came back unremarkable. Patient was admitted to the ICU mostly because of her hypothermia and her hyponatremia. I felt that her hyponatremia is hypovolemic in nature, patient had low sodium of 113, and she had a relatively elevated urine osmolality. Initially the patient was given 3% saline, however as she was noted to have relatively low blood pressure, we recommended stopping the 3% saline and she was given a liter of lactated Ringer's. Then her lactated Ringer's was changed to 75 mL per hour and follow up sodium this morning is 116. Patient will remain on lactated Ringer's at 50 mL per hour, and we will continue to monitor her sodium, no more 3% saline was given. In the meantime patient was tested for COVID-19 infection, and sure enough she tested positive. Supposedly the patient is vaccinated and boosted. Patient had no symptoms of shortness of breath, she had no pulmonary symptoms whatsoever, and her chest x- ray is basically relatively unremarkable. Hence this was an incidental COVID-19 positive finding Patient was reevaluated today on 05/19/22, remains in the ICU, sodium remains low, today is 117, hence the patient was seen by nephrology and she is back on 3% saline. She is also on oral sodium tablets. Clinically the patient is feeling better, she is not in any distress, she continues to hold relatively low temperature, today I'm recommending thyroid profile and a serum cortisol level. Her cortisol level came back normal/12 and her thyroid profile is pending her WBC count is 4.1 hemoglobin is 9.5, electrolytes are normal except for low sodium of 117 renal profile is normal Reevaluated today on 05/20/22, patient is gradually improving, her sodium is up to 121, this is being addressed by nephrology on the case. Pulmonary-workman the patient is not in any distress, her mentation is significantly improved. And I believe the COVID-19 infection is rather incidental. Patient does not have any symptoms to suggest COVID-19 pneumonia. Hence I'm planning to transfer the patient out of the ICU to a regular medical floor today. Labs from today were all reviewed renal profile is normal BUN is 12 creatinine 0.45, bicarb is 27 and sodium is 121 Objective - Vital Signs Vital signs: Vital Signs Temp 98.0 F 05/20/22 08:00 Pulse 74 05/20/22 10:00 Resp 13 05/20/22 10:00 BP 130/68 05/20/22 10:00 Pulse Ox 100 05/20/22 10:00 FiO2 Intake & Output 05/19/22 05/20/22 05/20/22 18:59 06:59 18:59 Intake Total 955 100 600 Output Total 395 1535 155 Balance 560 -1435 445 Weight 67.5 kg Intake: IV 125 Sodium Chloride 3%( 125 Hypertonic) 500 ml @ 25 mls/hr IV .Q20H [facility] Rx#: [id number] Oral 830 100 600 Output: Urine 395 1535 155 Other: Voiding Method Indwelling Catheter Indwelling Catheter Indwelling Catheter - Exam Physical Exam: Revealed an 82-year-old female in no distress, on room air. Head: normocephalic. Multiple abrasions noted on her face. And throughout her whole body HEENT:[Neck is supple.] [No neck masses.] [No thyromegaly.] [No JVD.] Chest: [Clear throughout, no crackles, no rhonchi, no wheezes.] Cardiac Exam: Irregular irregular rhythm. [Normal S1 and S2, no S3 gallop, no murmur.] Abdomen: [Soft, nontender, no megaly, no rebound, no guarding, normal bowel sounds.] Extremities: [No clubbing, no edema, no cyanosis.] Neurological Exam: Alert oriented 3, no gross focal deficits. Psychiatric: Less anxious today, normal affect, normal mental status Skin: Multiple bruises and abrasions noted throughout her whole body. - Labs CBC & Chem 7: 05/20/22 05:43 05/20/22 05:43 Labs: Abnormal Lab Results - Last 24 Hours (Table) 05/19/22 05/19/22 05/19/22 Range/Units 10:05 12:19 16:35 RBC (3.80-5.40) m/uL Hgb (11.4-16.0) gm/dL Hct (34.0-46.0) % Lymphocytes # (1.0-4.8) k/uL Sodium 117 L* 119 L* (137-145) mmol/L Chloride 89 L (98-107) mmol/L Carbon Dioxide 21 L (22-30) mmol/L Creatinine 0.50 L (0.52-1.04) mg/dL Glucose 108 H (74-99) mg/dL POC Glucose (mg/dL) 124 H (70-110) mg/dL Calcium 7.5 L (8.4-10.2) mg/dL AST 57 H (14-36) U/L ALT (4-34) U/L Total Protein 4.1 L (6.3-8.2) g/dL Albumin 2.4 L (3.5-5.0) g/dL 05/19/22 05/19/22 05/19/22 Range/Units 18:18 20:21 21:38 RBC (3.80-5.40) m/uL Hgb (11.4-16.0) gm/dL Hct (34.0-46.0) % Lymphocytes # (1.0-4.8) k/uL Sodium 119 L* 119 L* (137-145) mmol/L Chloride (98-107) mmol/L Carbon Dioxide (22-30) mmol/L Creatinine (0.52-1.04) mg/dL Glucose (74-99) mg/dL POC Glucose (mg/dL) 139 H (70-110) mg/dL Calcium (8.4-10.2) mg/dL AST (14-36) U/L ALT (4-34) U/L Total Protein (6.3-8.2) g/dL Albumin (3.5-5.0) g/dL 05/20/22 05/20/22 05/20/22 Range/Units 05:43 05:43 06:23 RBC 3.24 L (3.80-5.40) m/uL Hgb 11.0 L (11.4-16.0) gm/dL Hct 30.8 L (34.0-46.0) % Lymphocytes # 0.3 L (1.0-4.8) k/uL Sodium 121 L (137-145) mmol/L Chloride 88 L (98-107) mmol/L Carbon Dioxide (22-30) mmol/L Creatinine 0.45 L (0.52-1.04) mg/dL Glucose (74-99) mg/dL POC Glucose (mg/dL) 63 L (70-110) mg/dL Calcium 7.7 L (8.4-10.2) mg/dL AST 45 H (14-36) U/L ALT 37 H (4-34) U/L Total Protein 4.5 L (6.3-8.2) g/dL Albumin 2.7 L (3.5-5.0) g/dL Microbiology - Last 24 Hours (Table) 05/17/22 19:08 Blood Culture - Preliminary Blood No Growth after 48 hours Assessment and Plan Assessment: Impression: Hypovolemic hyponatremia Altered mental status consistent with acute metabolic encephalopathy, improving since yesterday COVID-19 infection, however she has no active pulmonary symptoms. History of benign essential hypertension History of congestive heart failure, maintained on diuretics. History of type 2 diabetes. Coronary arteriosclerosis. Dyslipidemia. Multiple abrasions and bruises secondary to fall Recommendation: Clinically the patient is extremely dry and dehydrated hence I believe the patient would benefit from IV fluids rather than diuretics. Transfer patient out of the ICU to a regular medical floor Suggest continue to hold diuresis for now. Again clinically the patient is extremely dehydrated. Continue Pepcid for the GI prophylaxis Continue Xanax Continue COVID-19 cocktail Transferred to regular medical floor today. We will continue to follow Time with Patient: Less than 30
[2022-05-20 11:52] LABS: Glucose,Whole Blood 89 mg/dL (70-110)
[2022-05-20] MEDS ORDERED: TOLVAPTAN 15 MG 1/2 TABLET PO ONE (15:00)
[2022-05-20 16:30] LABS: Glucose,Whole Blood 127 mg/dL (70-110)
[2022-05-20 20:16] LABS: Glucose,Whole Blood 103 mg/dL (70-110)
[2022-05-20] MEDS: ATORVASTATIN 20 MG TAB PO SCH (20:40)
[2022-05-20] MEDS: SODIUM CHLORIDE 3%(HYPERTONIC) 500 ML IV SCH (21:47)
[2022-05-21] MEDS: PSYLLIUM HUSK 100% 6 GM PACKET PO PRN ×2 (01:48→08:36)
[2022-05-21 06:45] LABS: Glucose,Whole Blood 115 mg/dL (70-110)
[2022-05-21 06:53] LABS: ALT 32 U/L (4-34); AST 26 U/L (14-36); African American GFR (CKD) >90 (>60 ml/min/1.73 sqM); Albumin 2.8 g/dL (3.5-5.0); Alkaline Phosphatase 52 U/L (38-126); Anion Gap 6 mmol/L; Blood Urea Nitrogen 15 mg/dL (7-17); Calcium 8.1 mg/dL (8.4-10.2); Carbon Dioxide 28 mmol/L (22-30); Chloride 91 mmol/L (98-107); Glucose 107 mg/dL (74-99); Magnesium 1.4 mg/dL (1.6-2.3); Non-African American GFR(CKD) 87 (>60 ml/min/1.73 sqM); Potassium 4.1 mmol/L (3.5-5.1); Sodium 125 mmol/L (137-145); Total Bilirubin 0.8 mg/dL (0.2-1.3); Total Protein 4.7 g/dL (6.3-8.2)
[2022-05-21 07:06] LABS: Basophils % (A) 0 %; Eosinophils % (A) 1 %; HCT 31.1 % (34.0-46.0); HGB 11.2 gm/dL (11.4-16.0); Lymphocytes # (A) 0.3 k/uL (1.0-4.8); Lymphocytes % (A) 6 %; MCH 34.1 pg (25.0-35.0); MCHC 36.1 g/dL (31.0-37.0); MCV 94.4 fL (80.0-100.0); Mean Platelet Volume 7.6; Monocytes # (A) 0.5 k/uL (0-1.0); Monocytes % (A) 11 %; Neutrophils # (A) 3.9 k/uL (1.3-7.7); Neutrophils % (A) 79 %; Platelet Count 296 k/uL (150-450); RBC 3.29 m/uL (3.80-5.40); RDW 12.6 % (11.5-15.5); WBC 4.9 k/uL (3.8-10.6)
[2022-05-21] MEDS: carvediloL 6.25 MG TAB PO SCH ×2 (08:21→17:51)
[2022-05-21] MEDS: FUROSEMIDE 10 MG/ML 2 ML VIAL IV SCH ×3 (08:36→20:29)
[2022-05-21] MEDS: FAMOTIDINE 20 MG TAB PO SCH ×2 (08:36→20:28)
[2022-05-21] MEDS: MAGNESIUM SULFATE-D5W PMX 1 GM in DEXTROSE/WATER 1 100ML.BAG IVPB SCH ×2 (08:36→09:58)
[2022-05-21] MEDS: SODIUM CHLORIDE TAB 1 GM TAB PO SCH ×2 (08:37→20:28)
[2022-05-21] MEDS: ASCORBIC ACID 500 MG TAB PO SCH (08:37)
[2022-05-21] MEDS: HEPARIN SODIUM,PORCINE/PF 5,000 UNIT/0.5 ML SYRINGE SQ SCH ×2 (08:37→17:07)
[2022-05-21] MEDS: CHOLECALCIFEROL 10 MCG (400 IU) TABLET PO SCH (08:37)
[2022-05-21] MEDS: ZINC SULFATE 220 MG CAP PO SCH (08:37)
[2022-05-21] MEDS: CLOPIDOGREL 75 MG TAB PO SCH (08:37)
[2022-05-21] MEDS: metFORMIN 500 MG TAB PO SCH ×2 (08:37→17:43)
[2022-05-21] MEDS: lisinopriL 10 MG TAB PO SCH (08:37)
--- NOTE | 2022-05-21 09:45 | P.PN ---
Subjective Patient is seen in follow-up for hyponatremia. Patient is sitting up in chair. She is awake but confused. Sodium level improved. Receiving IV Lasix. Nonoliguric. Received 3% overnight but currently off IV fluids. Blood pressure on the lower side this morning. Vital signs are stable. General: Awake. HEENT: Bruising noted. On nasal cannula. LUNGS: Breath sounds decreased. HEART: Rate and Rhythm are regular. ABDOMEN: Soft, no distention. EXTREMITITES: Lower extremities wrapped. Generalized bruising noted. Objective - Vital Signs Vital signs: Vital Signs Temp 97.3 F L 05/21/22 09:00 Pulse 92 05/21/22 09:00 Resp 10 L 05/21/22 09:00 BP 91/60 05/21/22 09:00 Pulse Ox 91 L 05/21/22 09:00 FiO2 Intake & Output 05/20/22 05/21/22 05/21/22 18:59 06:59 18:59 Intake Total 1000 600 Output Total 1155 1915 75 Balance -155 -1915 525 Intake: Intake, IV Titration 100 Amount Magnesium Sulfate-D5w Pmx 100 1 gm In Dextrose/Water 1 100ml.bag @ 100 mls/hr IVPB Q1H [facility] Rx#: [id number] Oral 1000 500 Output: Urine 1155 1915 75 Other: Voiding Method Indwelling Catheter Indwelling Catheter - Labs CBC & Chem 7: 05/21/22 06:20 05/21/22 06:20 Labs: Abnormal Lab Results - Last 24 Hours (Table) 05/20/22 05/20/22 05/20/22 Range/Units 12:10 16:28 19:47 RBC (3.80-5.40) m/uL Hgb (11.4-16.0) gm/dL Hct (34.0-46.0) % Lymphocytes # (1.0-4.8) k/uL Sodium 119 L* 118 L* (137-145) mmol/L Chloride (98-107) mmol/L Glucose (74-99) mg/dL POC Glucose (mg/dL) 127 H (70-110) mg/dL Calcium (8.4-10.2) mg/dL Magnesium (1.6-2.3) mg/dL Total Protein (6.3-8.2) g/dL Albumin (3.5-5.0) g/dL Vitamin B12 1414.0 H (200.0-944.0) pg/mL 05/21/22 05/21/22 05/21/22 Range/Units 00:11 06:20 06:20 RBC 3.29 L (3.80-5.40) m/uL Hgb 11.2 L (11.4-16.0) gm/dL Hct 31.1 L (34.0-46.0) % Lymphocytes # 0.3 L (1.0-4.8) k/uL Sodium 122 L 125 L (137-145) mmol/L Chloride 91 L (98-107) mmol/L Glucose 107 H (74-99) mg/dL POC Glucose (mg/dL) (70-110) mg/dL Calcium 8.1 L (8.4-10.2) mg/dL Magnesium 1.4 L (1.6-2.3) mg/dL Total Protein 4.7 L (6.3-8.2) g/dL Albumin 2.8 L (3.5-5.0) g/dL Vitamin B12 (200.0-944.0) pg/mL 05/21/22 Range/Units 06:44 RBC (3.80-5.40) m/uL Hgb (11.4-16.0) gm/dL Hct (34.0-46.0) % Lymphocytes # (1.0-4.8) k/uL Sodium (137-145) mmol/L Chloride (98-107) mmol/L Glucose (74-99) mg/dL POC Glucose (mg/dL) 115 H (70-110) mg/dL Calcium (8.4-10.2) mg/dL Magnesium (1.6-2.3) mg/dL Total Protein (6.3-8.2) g/dL Albumin (3.5-5.0) g/dL Vitamin B12 (200.0-944.0) pg/mL Microbiology - Last 24 Hours (Table) 05/17/22 19:08 Blood Culture - Preliminary Blood No Growth after 72 hours Assessment and Plan Plan: Assessment: 1. Hyponatremia. Slightly hypervolemic. 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 Urine sodium 77 and urine osmolality 477. TSH and cortisol normal. Status post 3% saline last night. Sodium level 125 today. Patient also admits to drinking at least 64 ounces of water daily at home. 2. Status post fall. 3. COVID-19 infection. 4. Benign hypertension. Blood pressure in the lower side this morning. 5. Hypomagnesemia from poor intake. Plan: Maintain 1200 mL fluid resection. Maintain sodium chloride tabs. Maintain IV Lasix. Hold for systolic blood pressure less than 100. Encouraged oral intake, particularly protein. Repeat sodium level this evening. Replace magnesium. Hold antihypertensives for systolic blood pressure less than 120.
--- NOTE | 2022-05-21 10:48 | P.CONS ---
History of Present Illness - Reason for Consult Consult date: 05/20/22 - History of Present Illness Patient is a 82-year-old female with a past medical history significant for coronary artery disease diabetes mellitus hypertension patient apparently was found by her neighbor in her garage on the ground attempting to crawl and she had breath closing on her multiple areas of bruising throughout her body and superficial abrasion patient was brought into the ER 3 days ago on 05/17/2022 patient was noticed to have low sodium 113 CT of the head came back negative patient did have a COVID-19 vaccine and has been posted however did have a positive COVID testing patient is currently in the ICU because of her low sodium on arrival to the ER the patient was hypothermic since then the patient has a normal temperature patient is currently 97% on room air patient did have a normal white count mild lymphopenia creatinine has been normal liver enzymes are normal urine has been negative blood cultures obtained which are currently negative patient did have a chest x-ray cardiomegaly mild pulm vascular congestion correlate with BNP for congestive heart failure patient did have multiple bruises to upper and lower extremity infectious he was consulted for possible wound care patient is very poor historian sleepy lethargic and did not answer any question most of the information has been obtained from review the chart and talking with nursing staff Past Medical History History of Any Multi-Drug Resistant Organisms: None Reported Smoking Status: Never smoker Past Alcohol Use History: None Reported Past Drug Use History: None Reported Medications and Allergies Home Medications Medication Instructions Recorded Confirmed Type Atorvastatin [Lipitor] 20 mg PO HS 05/17/22 05/17/22 History Clopidogrel [Plavix] 75 mg PO DAILY 05/17/22 05/17/22 History Furosemide [Lasix] 20 mg PO DAILY 05/17/22 05/17/22 History Spironolactone [Aldactone] 25 mg PO DAILY 05/17/22 05/17/22 History carvediloL [Coreg] 6.25 mg PO BID-W/MEALS 05/17/22 05/17/22 History lisinopriL [Zestril] 10 mg PO DAILY 05/17/22 05/17/22 History metFORMIN HCL [Glucophage] 500 mg PO BID-W/MEALS 05/17/22 05/17/22 History Allergies Allergy/AdvReac Type Severity Reaction Status Date / Time No Known Allergies Allergy Unverified 05/17/22 21:05 Physical Exam Vitals: Vital Signs Temp Pulse Resp BP Pulse Ox 05/20/22 11:00 64 19 122/67 99 05/20/22 10:00 74 13 130/68 100 05/20/22 09:00 78 18 132/58 95 05/20/22 08:00 98.0 F 78 18 139/65 94 L 05/20/22 07:00 82 22 138/71 100 05/20/22 06:00 70 14 122/60 100 05/20/22 05:00 79 15 125/61 96 05/20/22 04:00 97.6 F 75 15 122/74 100 05/20/22 03:00 77 16 97/59 100 05/20/22 02:00 69 15 125/63 99 05/20/22 01:00 80 17 118/58 96 05/20/22 00:00 97.7 F 76 14 144/64 95 05/19/22 23:00 84 16 123/76 95 05/19/22 22:00 84 13 130/62 98 05/19/22 21:00 75 20 126/57 96 05/19/22 20:00 98.1 F 76 13 121/55 95 05/19/22 19:00 76 13 137/68 96 05/19/22 18:00 84 14 137/83 97 05/19/22 17:00 84 13 134/66 96 05/19/22 16:00 82 12 124/57 100 05/19/22 15:00 78 8 L 127/68 96 05/19/22 14:00 74 15 125/57 97 05/19/22 13:00 127/59 95 Intake and Output 05/19/22 05/20/22 05/20/22 22:59 06:59 14:59 Intake Total 680 600 Output Total 280 1385 1005 Balance 400 -1385 -405 Intake: Oral 680 600 Output: Urine 280 1385 1005 Other: Voiding Method Indwelling Catheter Indwelling Catheter Indwelling Catheter Weight 67.5 kg Results CBC & Chem 7: 05/21/22 06:20 05/21/22 06:20 Labs: Abnormal Lab Results - Last 24 Hours (Table) 05/19/22 05/19/22 05/19/22 Range/Units 12:19 16:35 18:18 RBC (3.80-5.40) m/uL Hgb (11.4-16.0) gm/dL Hct (34.0-46.0) % Lymphocytes # (1.0-4.8) k/uL Sodium 119 L* 119 L* (137-145) mmol/L Chloride (98-107) mmol/L Creatinine (0.52-1.04) mg/dL POC Glucose (mg/dL) 124 H (70-110) mg/dL Calcium (8.4-10.2) mg/dL AST (14-36) U/L ALT (4-34) U/L Total Protein (6.3-8.2) g/dL Albumin (3.5-5.0) g/dL 05/19/22 05/19/22 05/20/22 Range/Units 20:21 21:38 05:43 RBC 3.24 L (3.80-5.40) m/uL Hgb 11.0 L (11.4-16.0) gm/dL Hct 30.8 L (34.0-46.0) % Lymphocytes # 0.3 L (1.0-4.8) k/uL Sodium 119 L* (137-145) mmol/L Chloride (98-107) mmol/L Creatinine (0.52-1.04) mg/dL POC Glucose (mg/dL) 139 H (70-110) mg/dL Calcium (8.4-10.2) mg/dL AST (14-36) U/L ALT (4-34) U/L Total Protein (6.3-8.2) g/dL Albumin (3.5-5.0) g/dL 05/20/22 05/20/22 05/20/22 Range/Units 05:43 06:23 12:10 RBC (3.80-5.40) m/uL Hgb (11.4-16.0) gm/dL Hct (34.0-46.0) % Lymphocytes # (1.0-4.8) k/uL Sodium 121 L 119 L* (137-145) mmol/L Chloride 88 L (98-107) mmol/L Creatinine 0.45 L (0.52-1.04) mg/dL POC Glucose (mg/dL) 63 L (70-110) mg/dL Calcium 7.7 L (8.4-10.2) mg/dL AST 45 H (14-36) U/L ALT 37 H (4-34) U/L Total Protein 4.5 L (6.3-8.2) g/dL Albumin 2.7 L (3.5-5.0) g/dL Microbiology - Last 24 Hours (Table) 05/17/22 19:08 Blood Culture - Preliminary Blood No Growth after 48 hours Assessment and Plan Plan: 1patient who did have multiple bruises to her bilateral lower extremity to the facial area currently do not have any open wound that I was able to appreciate and no evidence of any cellulitis treatment is mostly supportive marking the area of the bruising to make sure they are not getting any bigger but no need for any specific lotion or treatment. 2patient with a positive COVID test did not have significant respiratory symptoms patient is currently not hypoxic no need for supplemental oxygen chest x-ray mostly CHF treatment is mostly supportive. 3patient to continue with the heparin vitamin C and zinc no need for steroids or remdesivir at this point. We will follow on clinical condition and cultures to further adjust medication if needed Thank you for this consultation will follow this patient along with you
[2022-05-21 12:30] LABS: Glucose,Whole Blood 116 mg/dL (70-110)
--- NOTE | 2022-05-21 12:49 | P.PN ---
Subjective Progress Note Date: 05/21/22 Principal diagnosis: Acute hypovolemic hyponatremia and COVID-19 infection This is an 82-year-old female with history of hypertension, coronary artery disease, diabetes, poor historian, patient presented to the ER yesterday shortly after she was found by her neighbor in her garage, on the ground, attempting to crawl, and she had wet clothing and multiple areas of bruises throughout her whole body, and superficial abrasions. Apparently the patient was very confused, she was hypothermic when she arrived to the ER with a temp of 84. Patient was also noted to have low sodium of 113. Patient is normally on diuretics including Lasix 20 mg daily and on Aldactone 25 mg daily, she is also on multiple cardiac meds including Lipitor, Plavix, Coreg, and Zestril. At any rate it is not clear how long with the patient down in the garage, however considering her altered mental status she had extensive scanning of her brain, and all came back nondiagnostic. Patient also had a CT angiogram of the head, came back unremarkable. Patient was admitted to the ICU mostly because of her hypothermia and her hyponatremia. I felt that her hyponatremia is hypovolemic in nature, patient had low sodium of 113, and she had a relatively elevated urine osmolality. Initially the patient was given 3% saline, however as she was noted to have relatively low blood pressure, we recommended stopping the 3% saline and she was given a liter of lactated Ringer's. Then her lactated Ringer's was changed to 75 mL per hour and follow up sodium this morning is 116. Patient will remain on lactated Ringer's at 50 mL per hour, and we will continue to monitor her sodium, no more 3% saline was given. In the meantime patient was tested for COVID-19 infection, and sure enough she tested positive. Supposedly the patient is vaccinated and boosted. Patient had no symptoms of shortness of breath, she had no pulmonary symptoms whatsoever, and her chest x- ray is basically relatively unremarkable. Hence this was an incidental COVID-19 positive finding Patient was reevaluated today on 05/19/22, remains in the ICU, sodium remains low, today is 117, hence the patient was seen by nephrology and she is back on 3% saline. She is also on oral sodium tablets. Clinically the patient is feeling better, she is not in any distress, she continues to hold relatively low temperature, today I'm recommending thyroid profile and a serum cortisol level. Her cortisol level came back normal/12 and her thyroid profile is pending her WBC count is 4.1 hemoglobin is 9.5, electrolytes are normal except for low sodium of 117 renal profile is normal Reevaluated today on 05/20/22, patient is gradually improving, her sodium is up to 121, this is being addressed by nephrology on the case. Pulmonary-workman the patient is not in any distress, her mentation is significantly improved. And I believe the COVID-19 infection is rather incidental. Patient does not have any symptoms to suggest COVID-19 pneumonia. Hence I'm planning to transfer the patient out of the ICU to a regular medical floor today. Labs from today were all reviewed renal profile is normal BUN is 12 creatinine 0.45, bicarb is 27 and sodium is 121 Reevaluated today on 05/21/22, patient is doing well, received 3% saline overnight, and now her sodium is 125. Overall the patient is doing great, she is alert oriented 3, does not seem to be confused one bit. Patient is now on overflow, she could be transferred to a regular medical floor once a bed is available. Supposedly the patient has been on diuretics for LV dysfunction, I have not seen an echocardiogram on this patient after reviewing previous records, hence I'm recommending an echocardiogram on this patient to assess LV function. Patient has been receiving diuretics by nephrology, and her sodium has been fluctuating all over the place. At any rate I believe it is safe enough to transfer the patient out of the ICU once a bed is available. Pulmonary-workman remains on room air, she is not in any distress. Blood pressure is marginal at her blood pressure medication is presently on hold. Even her Lasix was put on hold earlier today Objective - Vital Signs Vital signs: Vital Signs Temp 97.3 F L 05/21/22 09:00 Pulse 85 05/21/22 12:00 Resp 17 05/21/22 12:00 BP 126/67 05/21/22 12:00 Pulse Ox 98 05/21/22 12:00 FiO2 Intake & Output 05/20/22 05/21/22 05/21/22 18:59 06:59 18:59 Intake Total 1000 600 Output Total 1155 1915 325 Balance -155 -1915 275 Intake: Intake, IV Titration 100 Amount Magnesium Sulfate-D5w Pmx 100 1 gm In Dextrose/Water 1 100ml.bag @ 100 mls/hr IVPB Q1H [facility] Rx#: [id number] Oral 1000 500 Output: Urine 1155 1914 325 Other: Voiding Method Indwelling Catheter Indwelling Catheter Indwelling Catheter - Exam Physical Exam: Revealed an 82-year-old female in no distress, on room air. Head: normocephalic. Multiple abrasions noted on her face. And throughout her whole body HEENT:[Neck is supple.] [No neck masses.] [No thyromegaly.] [No JVD.] Chest: [Clear throughout, no crackles, no rhonchi, no wheezes.] Cardiac Exam: Irregular irregular rhythm. [Normal S1 and S2, no S3 gallop, no murmur.] Abdomen: [Soft, nontender, no megaly, no rebound, no guarding, normal bowel sounds.] Extremities: [No clubbing, no edema, no cyanosis.] Neurological Exam: Alert oriented 3, no gross focal deficits. Psychiatric: Less anxious today, normal affect, normal mental status Skin: Multiple bruises and abrasions noted throughout her whole body. - Labs CBC & Chem 7: 05/21/22 06:20 05/21/22 06:20 Labs: Abnormal Lab Results - Last 24 Hours (Table) 05/20/22 05/20/22 05/20/22 Range/Units 12:10 16:28 19:47 RBC (3.80-5.40) m/uL Hgb (11.4-16.0) gm/dL Hct (34.0-46.0) % Lymphocytes # (1.0-4.8) k/uL Sodium 119 L* 118 L* (137-145) mmol/L Chloride (98-107) mmol/L Glucose (74-99) mg/dL POC Glucose (mg/dL) 127 H (70-110) mg/dL Calcium (8.4-10.2) mg/dL Magnesium (1.6-2.3) mg/dL Total Protein (6.3-8.2) g/dL Albumin (3.5-5.0) g/dL Vitamin B12 1414.0 H (200.0-944.0) pg/mL 05/21/22 05/21/22 05/21/22 Range/Units 00:11 06:20 06:20 RBC 3.29 L (3.80-5.40) m/uL Hgb 11.2 L (11.4-16.0) gm/dL Hct 31.1 L (34.0-46.0) % Lymphocytes # 0.3 L (1.0-4.8) k/uL Sodium 122 L 125 L (137-145) mmol/L Chloride 91 L (98-107) mmol/L Glucose 107 H (74-99) mg/dL POC Glucose (mg/dL) (70-110) mg/dL Calcium 8.1 L (8.4-10.2) mg/dL Magnesium 1.4 L (1.6-2.3) mg/dL Total Protein 4.7 L (6.3-8.2) g/dL Albumin 2.8 L (3.5-5.0) g/dL Vitamin B12 (200.0-944.0) pg/mL 05/21/22 05/21/22 Range/Units 06:44 12:28 RBC (3.80-5.40) m/uL Hgb (11.4-16.0) gm/dL Hct (34.0-46.0) % Lymphocytes # (1.0-4.8) k/uL Sodium (137-145) mmol/L Chloride (98-107) mmol/L Glucose (74-99) mg/dL POC Glucose (mg/dL) 115 H 116 H (70-110) mg/dL Calcium (8.4-10.2) mg/dL Magnesium (1.6-2.3) mg/dL Total Protein (6.3-8.2) g/dL Albumin (3.5-5.0) g/dL Vitamin B12 (200.0-944.0) pg/mL Microbiology - Last 24 Hours (Table) 05/17/22 19:08 Blood Culture - Preliminary Blood No Growth after 72 hours Assessment and Plan Assessment: Impression: Hypovolemic hyponatremia Altered mental status consistent with acute metabolic encephalopathy, resolved COVID-19 infection, however she has no active pulmonary symptoms. History of benign essential hypertension History of congestive heart failure, maintained on diuretics. History of type 2 diabetes. Coronary arteriosclerosis. Dyslipidemia. Multiple abrasions and bruises secondary to fall Recommendation: Transfer patient out of the ICU to a regular medical floor Continue Pepcid for the GI prophylaxis Patient may benefit from cautious hydration specially with her history of LV dysfunction and I would recommend to continue holding diuretics, assess LV function, check echocardiogram/Doppler Continue Xanax Continue COVID-19 cocktail We will continue to follow Time with Patient: Less than 30
[2022-05-21 16:56] LABS: Glucose,Whole Blood 105 mg/dL (70-110)
[2022-05-21] MEDS: SODIUM CHLORIDE 3%(HYPERTONIC) 500 ML IV SCH (17:39)
[2022-05-21 19:53] LABS: Glucose,Whole Blood 168 mg/dL (70-110)
[2022-05-21] MEDS: ATORVASTATIN 20 MG TAB PO SCH (20:28)
--- NOTE | 2022-05-21 22:13 | PN ---
PROGRESS NOTE SUBJECTIVE: This 82-year-old woman, who was admitted with fall and severe hyponatremia, is being closely monitored in the ICU. The patient had multiple of hypertonic saline. Multiple consultants are following the patient closely. The patient has multiple wounds. Also, no chest pain. PAST MEDICAL HISTORY: Reviewed. REVIEW OF SYSTEMS: A 14-point review of systems is negative except as mentioned earlier. CURRENT MEDICATIONS: Include vitamin C, doses and rest of the medications noted. PHYSICAL EXAMINATION: VITAL SIGNS: respirations 14. HEENT: Conjunctivae normal. RESPIRATIONS: Breath sounds diminished in the bases. No rhonchi. ABDOMEN: Soft. NERVOUS SYSTEM: Mild diffuse weakness LABORATORY DATA: Noted. Sodium improved to at this time. ASSESSMENT: 1. Severe hyponatremia, possibly syndrome of inappropriate secretion of antidiuretic hormone. 2. Falls. 3. Multiple cutaneous ulcers. 4. Change in mental status, metabolic encephalopathy, multifactorial, acute COVID-19 infection. 5. Diabetes mellitus, type 2. 6. History of coronary artery disease. 7. Multiple medical issues. RECOMMENDATIONS: I recommend to continue . Otherwise, I would closely follow with Nephrology regarding the hyponatremia. Repeat labs in the morning. prognosis because of multiple complex medical issues. See orders for further details. Further recommendations to follow. Infectious Disease evaluation. MMODL / IJN: [id number] / [facility]
--- NOTE | 2022-05-22 00:02 | P.PN ---
Subjective Progress Note Date: 05/21/22 Patient was seen for follow-up. Patient is fully alert and awake, sitting in the recliner. Patient is fully oriented. Patient tells me regarding the fall. Patient states that her neighbor Monica had an appointment with her about certain bills. Patient states that she wanted to get a different cane, that was laying in the barn garage. She was using her older cane. As she was heading to the barn garage, started pouring down. She had a little, so she could reach the barn, but she stepped on some slippery Fonseca with Rigoberto's in water, and her leg give out and she fell really hard face forward. She started bleeding. She tried to get up, but she was covered up in so many layers, that she could not get up with all her strength. She laid there for a couple hours until she passed out in cold temperature, and finally her neighbors found her and EMS was called as above. There was no seizure. Patient is healing very well. Denies any new complaints. Objective - Vital Signs Vital signs: Vital Signs Temp 97.7 F 05/21/22 20:00 Pulse 86 05/21/22 20:00 Resp 20 05/21/22 20:00 BP 122/60 05/21/22 20:00 Pulse Ox 96 05/21/22 20:00 FiO2 Intake & Output 05/21/22 05/21/22 05/22/22 06:59 18:59 06:59 Intake Total 800 Output Total 1914 1825 75 Balance -1914 Intake: Intake, IV Titration 100 Amount Magnesium Sulfate-D5w Pmx 100 1 gm In Dextrose/Water 1 100ml.bag @ 100 mls/hr IVPB Q1H [facility] Rx#: [id number] Oral 700 Output: Urine 1914 1824 75 Other: Voiding Method Indwelling Catheter Indwelling Catheter Indwelling Catheter - Exam Patient is alert and awake. She knows her date of , and that she is in [facility]. She knows even the street address of the hospital. Speech and language functions are normal. Attention, concentration and fund of knowledge is adequate. Cranial nerves are all normal. Visual timmons are full with no neglect. Face is symmetric and tongue protrudes the midline. Muscle strength is normal. No ataxia. Tone and bulk of muscles normal. Sensations are equal with no neglect. - Labs CBC & Chem 7: 05/21/22 06:20 05/21/22 15:46 Labs: Abnormal Lab Results - Last 24 Hours (Table) 05/21/22 05/21/22 05/21/22 Range/Units 00:11 06:20 06:20 RBC 3.29 L (3.80-5.40) m/uL Hgb 11.2 L (11.4-16.0) gm/dL Hct 31.1 L (34.0-46.0) % Lymphocytes # 0.3 L (1.0-4.8) k/uL Sodium 122 L 125 L (137-145) mmol/L Chloride 91 L (98-107) mmol/L Glucose 107 H (74-99) mg/dL POC Glucose (mg/dL) (70-110) mg/dL Calcium 8.1 L (8.4-10.2) mg/dL Magnesium 1.4 L (1.6-2.3) mg/dL Total Protein 4.7 L (6.3-8.2) g/dL Albumin 2.8 L (3.5-5.0) g/dL 05/21/22 05/21/22 05/21/22 Range/Units 06:44 12:28 15:46 RBC (3.80-5.40) m/uL Hgb (11.4-16.0) gm/dL Hct (34.0-46.0) % Lymphocytes # (1.0-4.8) k/uL Sodium 128 L (137-145) mmol/L Chloride (98-107) mmol/L Glucose (74-99) mg/dL POC Glucose (mg/dL) 115 H 116 H (70-110) mg/dL Calcium (8.4-10.2) mg/dL Magnesium (1.6-2.3) mg/dL Total Protein (6.3-8.2) g/dL Albumin (3.5-5.0) g/dL 05/21/22 Range/Units 19:51 RBC (3.80-5.40) m/uL Hgb (11.4-16.0) gm/dL Hct (34.0-46.0) % Lymphocytes # (1.0-4.8) k/uL Sodium (137-145) mmol/L Chloride (98-107) mmol/L Glucose (74-99) mg/dL POC Glucose (mg/dL) 168 H (70-110) mg/dL Calcium (8.4-10.2) mg/dL Magnesium (1.6-2.3) mg/dL Total Protein (6.3-8.2) g/dL Albumin (3.5-5.0) g/dL Microbiology - Last 24 Hours (Table) 05/17/22 19:08 Blood Culture - Preliminary Blood No Growth after 96 hours Assessment and Plan Assessment: * Status post fall in cold weather due to stepping on puddle of water, laying out in cold for hours (unknown duration) before passing out. * Hypothermia, resolved * Severe hyponatremia, improving * Acute Covid-19 positive * Hypotension, rule out sepsis, now improved. * History of Hypertension * Multiple abrasions and bruises secondary to fall. Plan: * Patient remembers falling, and also subsequently laying on the floor. It was not a seizure. * Patient's mentation at present is completely normal. Her encephalopathy has resolved. * Treatment of hyponatremia and other medical conditions as per IM and other specialties. Sodium persisting much improved 128 today. * CTA of head and neck showed no stenosis or occlusion. * B12 1414, folate 9.0(4-31), TSH 0.645 normal. We will start folate replacement. * No other neurological workup indicated. Neurologically clear. Neurology will sign off. Please call neurology if any other concerns. Dr. Leland Simmons starting neurology service in the morning.
[2022-05-22] MEDS: HEPARIN SODIUM,PORCINE/PF 5,000 UNIT/0.5 ML SYRINGE SQ SCH ×2 (00:03→08:30)
--- NOTE | 2022-05-22 02:49 | PN ---
PROGRESS NOTE DATE OF SERVICE: 05/21/2022 HISTORY OF PRESENT ILLNESS: This is an 82-year-old woman who was admitted with hypovolemic hyponatremia, acute COVID-19 infection, is being closely monitored in the ICU at this time. The patient received hypertonic saline on multiple occasions. The patient also has history of fall also, Dr. Donato is following the patient closely. Symptomatic treatment is being given. is following the patient closely. PAST MEDICAL HISTORY: Reviewed. REVIEW OF SYSTEMS: 14-point review is negative as mentioned earlier. CURRENT MEDICATIONS: Reviewed include Xanax and rest of the medications and doses are noted. PHYSICAL EXAMINATION: VITAL SIGNS: Pulse is 86, blood pressure is 142/73, respirations 21. HEENT: Conjunctivae normal. NECK: No JVD. CARDIOVASCULAR: S1, S2. RESPIRATIONS: Few scattered rhonchi. ABDOMEN: Soft and nontender. LABORATORY DATA: Reviewed. ASSESSMENT: 1. Acute hypovolemic hyponatremia. 2. Acute COVID-19 infection. 3. Change in mental status, metabolic encephalopathy. 4. Hypertension. 5. Multiple complex medical issues. RECOMMENDATIONS: Recommend to continue current management and recommend repeat labs tomorrow. Continue the rest of medications and prognosis is guarded. Dr. Donato will follow tomorrow. MMODL / IJN: [id number] / [facility]
[2022-05-22 06:13] LABS: Glucose,Whole Blood 112 mg/dL (70-110)
[2022-05-22] MEDS: metFORMIN 500 MG TAB PO SCH ×2 (06:56→16:40)
[2022-05-22 07:05] LABS: Basophils % (A) 0 %; Eosinophils % (A) 1 %; HCT 31.4 % (34.0-46.0); HGB 10.8 gm/dL (11.4-16.0); Lymphocytes # (A) 0.3 k/uL (1.0-4.8); Lymphocytes % (A) 5 %; MCHC 34.3 g/dL (31.0-37.0); MCV 96.3 fL (80.0-100.0); Mean Platelet Volume 7.3; Monocytes # (A) 0.4 k/uL (0-1.0); Monocytes % (A) 7 %; Neutrophils # (A) 5.1 k/uL (1.3-7.7); Neutrophils % (A) 84 %; Platelet Count 367 k/uL (150-450); RBC 3.26 m/uL (3.80-5.40); RDW 12.7 % (11.5-15.5)
[2022-05-22] MEDS: carvediloL 6.25 MG TAB PO SCH ×2 (07:11→16:40)
[2022-05-22 07:19] LABS: African American GFR (CKD) >90 (>60 ml/min/1.73 sqM); Anion Gap 7 mmol/L; Blood Urea Nitrogen 14 mg/dL (7-17); Calcium 8.4 mg/dL (8.4-10.2); Carbon Dioxide 28 mmol/L (22-30); Chloride 93 mmol/L (98-107); Glucose 114 mg/dL (74-99); Non-African American GFR(CKD) >90 (>60 ml/min/1.73 sqM); Potassium 3.9 mmol/L (3.5-5.1); Sodium 128 mmol/L (137-145)
[2022-05-22] MEDS: SODIUM CHLORIDE TAB 1 GM TAB PO SCH ×2 (08:29→21:35)
[2022-05-22] MEDS: FAMOTIDINE 20 MG TAB PO SCH ×2 (08:29→21:35)
[2022-05-22] MEDS: CLOPIDOGREL 75 MG TAB PO SCH (08:29)
[2022-05-22] MEDS: FOLIC ACID 1 MG TAB PO SCH (08:29)
[2022-05-22] MEDS: CHOLECALCIFEROL 10 MCG (400 IU) TABLET PO SCH (08:29)
[2022-05-22] MEDS: FUROSEMIDE 10 MG/ML 2 ML VIAL IV SCH (08:29)
[2022-05-22] MEDS: ZINC SULFATE 220 MG CAP PO SCH (08:29)
[2022-05-22] MEDS: ASCORBIC ACID 500 MG TAB PO SCH (08:29)
[2022-05-22] MEDS: lisinopriL 10 MG TAB PO SCH (08:29)
[2022-05-22] MEDS ORDERED: TOLVAPTAN 15 MG 1/2 TABLET PO ONE (09:09)
--- NOTE | 2022-05-22 09:12 | P.PN ---
Subjective Patient is seen in follow-up for hyponatremia. Patient is sitting up in chair. Undergoing echocardiogram. Sodium level stable at 128. Receiving IV Lasix. Nonoliguric. Hemodynamically stable. Vital signs are stable. General: Awake. HEENT: Bruising noted. LUNGS: Breath sounds decreased. HEART: Rate and Rhythm are regular. ABDOMEN: Soft, no distention. EXTREMITITES: Generalized bruising noted. Trace edema. Objective - Vital Signs Vital signs: Vital Signs Temp 97.5 F L 05/22/22 08:00 Pulse 84 05/22/22 08:00 Resp 17 05/22/22 08:00 BP 113/54 05/22/22 08:00 Pulse Ox 96 05/22/22 08:00 FiO2 Intake & Output 05/21/22 05/22/22 05/22/22 18:59 06:59 18:59 Intake Total 800 Output Total 1825 725 Balance -1025 -725 Weight 60.5 kg Intake: Intake, IV Titration 100 Amount Magnesium Sulfate-D5w Pmx 100 1 gm In Dextrose/Water 1 100ml.bag @ 100 mls/hr IVPB Q1H [facility] Rx#: [id number] Oral 700 Output: Urine 1825 725 Other: Voiding Method Indwelling Catheter Indwelling Catheter Indwelling Catheter - Labs CBC & Chem 7: 05/22/22 06:43 05/22/22 06:43 Labs: Abnormal Lab Results - Last 24 Hours (Table) 05/21/22 05/21/22 05/21/22 Range/Units 12:28 15:46 19:51 RBC (3.80-5.40) m/uL Hgb (11.4-16.0) gm/dL Hct (34.0-46.0) % Lymphocytes # (1.0-4.8) k/uL Sodium 128 L (137-145) mmol/L Chloride (98-107) mmol/L Creatinine (0.52-1.04) mg/dL Glucose (74-99) mg/dL POC Glucose (mg/dL) 116 H 168 H (70-110) mg/dL 05/22/22 05/22/22 05/22/22 Range/Units 06:12 06:43 06:43 RBC 3.26 L (3.80-5.40) m/uL Hgb 10.8 L (11.4-16.0) gm/dL Hct 31.4 L (34.0-46.0) % Lymphocytes # 0.3 L (1.0-4.8) k/uL Sodium 128 L (137-145) mmol/L Chloride 93 L (98-107) mmol/L Creatinine 0.46 L (0.52-1.04) mg/dL Glucose 114 H (74-99) mg/dL POC Glucose (mg/dL) 112 H (70-110) mg/dL Microbiology - Last 24 Hours (Table) 05/17/22 19:08 Blood Culture - Preliminary Blood No Growth after 96 hours Assessment and Plan Plan: Assessment: 1. Hyponatremia. Slightly hypervolemic. 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 Urine sodium 77 and urine osmolality 477. TSH and cortisol normal. Status post 3% this admission. Sodium level 128 today. Patient also admits to drinking at least 64 ounces of water daily at home. 2. Status post fall. 3. COVID-19 infection. 4. Benign hypertension. Stable. 5. Hypomagnesemia from poor intake. Replaced. Plan: Maintain 1200 mL fluid resection. Maintain sodium chloride tabs. Maintain IV Lasix. Hold for systolic blood pressure less than 100. Samsca 7.5 mg once today. Encouraged oral intake, particularly protein. Repeat sodium level this evening. Hold antihypertensives for systolic blood pressure less than 120. Follow-up echocardiogram. Check chest x-ray.
--- NOTE | 2022-05-22 09:45 | XR ---
EXAMINATION TYPE: XR chest 1V DATE OF EXAM: 05/22/2022 COMPARISON: Chest x-ray 05/17/2022 HISTORY: Shortness of breath TECHNIQUE: Single frontal view of the chest is obtained. FINDINGS: Patient is rotated. There is no focal air space opacity, pleural effusion, or pneumothorax seen. The cardiac silhouette size is within normal limits. Aorta is dense. The osseous structures a re stable, marked arthropathy again noted within the shoulders, there are overlying leads. IMPRESSION: No acute process.
[2022-05-22 11:16] LABS: Glucose,Whole Blood 124 mg/dL (70-110)
--- NOTE | 2022-05-22 12:18 | P.PN ---
Subjective Progress Note Date: 05/22/22 This is an 82-year-old female with history of hypertension, coronary artery disease, diabetes, poor historian, patient presented to the ER yesterday shortly after she was found by her neighbor in her garage, on the ground, attempting to crawl, and she had wet clothing and multiple areas of bruises throughout her whole body, and superficial abrasions. Apparently the patient was very confused, she was hypothermic when she arrived to the ER with a temp of 84. Patient was also noted to have low sodium of 113. Patient is normally on diuretics including Lasix 20 mg daily and on Aldactone 25 mg daily, she is also on multiple cardiac meds including Lipitor, Plavix, Coreg, and Zestril. At any rate it is not clear how long with the patient down in the garage, however considering her altered mental status she had extensive scanning of her brain, and all came back nondiagnostic. Patient also had a CT angiogram of the head, came back unremarkable. Patient was admitted to the ICU mostly because of her hypothermia and her hyponatremia. I felt that her hyponatremia is hypovolemic in nature, patient had low sodium of 113, and she had a relatively elevated urine osmolality. Initially the patient was given 3% saline, however as she was noted to have relatively low blood pressure, we recommended stopping the 3% saline and she was given a liter of lactated Ringer's. Then her lactated Ringer's was changed to 75 mL per hour and follow up sodium this morning is 116. Patient will remain on lactated Ringer's at 50 mL per hour, and we will continue to monitor her sodium, no more 3% saline was given. In the meantime patient was tested for COVID-19 infection, and sure enough she tested positive. Supposedly the patient is vaccinated and boosted. Patient had no symptoms of shortness of breath, she had no pulmonary symptoms whatsoever, and her chest x- ray is basically relatively unremarkable. Hence this was an incidental COVID-19 positive finding Patient was reevaluated today on 05/19/22, remains in the ICU, sodium remains low, today is 117, hence the patient was seen by nephrology and she is back on 3% saline. She is also on oral sodium tablets. Clinically the patient is feeling better, she is not in any distress, she continues to hold relatively low temperature, today I'm recommending thyroid profile and a serum cortisol level. Her cortisol level came back normal/12 and her thyroid profile is pending her WBC count is 4.1 hemoglobin is 9.5, electrolytes are normal except for low sodium of 117 renal profile is normal Reevaluated today on 05/20/22, patient is gradually improving, her sodium is up to 121, this is being addressed by nephrology on the case. Pulmonary-workman the patient is not in any distress, her mentation is significantly improved. And I believe the COVID-19 infection is rather incidental. Patient does not have any symptoms to suggest COVID-19 pneumonia. Hence I'm planning to transfer the patient out of the ICU to a regular medical floor today. Labs from today were all reviewed renal profile is normal BUN is 12 creatinine 0.45, bicarb is 27 and sodium is 121 Reevaluated today on 05/21/22, patient is doing well, received 3% saline overnight, and now her sodium is 125. Overall the patient is doing great, she is alert oriented 3, does not seem to be confused one bit. Patient is now on overflow, she could be transferred to a regular medical floor once a bed is available. Supposedly the patient has been on diuretics for LV dysfunction, I have not seen an echocardiogram on this patient after reviewing previous records, hence I'm recommending an echocardiogram on this patient to assess LV function. Patient has been receiving diuretics by nephrology, and her sodium has been fluctuating all over the place. At any rate I believe it is safe enough to transfer the patient out of the ICU once a bed is available. Pulmonary-workman remains on room air, she is not in any distress. Blood pressure is marginal at her blood pressure medication is presently on hold. Even her Lasix was put on hold earlier today The patient is seen 05/22/2022 in follow-up in the intensive care unit. She remains regular medical floor overflow. She is sitting up in a chair at the bedside. Awake and alert in no acute distress. Maintaining O2 saturations in the 90s on room air. No IV fluids. Current sodium is 128. White count 6.0. Hemoglobin 10.0. BUN 14. Creatinine 0.46. Potassium 3.9. Kristopher 114. She is continued on vitamin supplements. Chest x-ray shows no acute pulmonary process. No evidence of CoVID pneumonia. Objective - Vital Signs Vital signs: Vital Signs Temp 97.5 F L 05/22/22 08:00 Pulse 84 05/22/22 08:00 Resp 17 05/22/22 08:00 BP 113/54 05/22/22 08:00 Pulse Ox 96 05/22/22 08:00 FiO2 Intake & Output 05/21/22 05/22/22 05/22/22 18:59 06:59 18:59 Intake Total 800 350 Output Total 1825 725 500 Balance -1025 -725 -150 Weight 60.5 kg Intake: Intake, IV Titration 100 Amount Magnesium Sulfate-D5w Pmx 100 1 gm In Dextrose/Water 1 100ml.bag @ 100 mls/hr IVPB Q1H [facility] Rx#: [id number] Oral 700 350 Output: Urine 1825 725 500 Other: Voiding Method Indwelling Catheter Indwelling Catheter Indwelling Catheter - Exam GENERAL EXAM: Alert, pleasant 82-year-old female, on room air, comfortable in no apparent distress. HEAD: Normocephalic. EYES: Normal reaction of pupils, equal size. NOSE: Clear with pink turbinates. THROAT: No erythema or exudates. NECK: No masses, no JVD. CHEST: No chest wall deformity. LUNGS: Equal air entry with no crackles, wheeze, rhonchi or dullness. CVS: S1 and S2 normal with no audible murmur, regular rhythm. ABDOMEN: No hepatosplenomegaly, normal bowel sounds, no guarding or rigidity. SPINE: No scoliosis or deformity SKIN: No rashes CENTRAL NERVOUS SYSTEM: No focal deficits, tone is normal in all 4 extremities. EXTREMITIES: There is no peripheral edema. No clubbing, no cyanosis. Peripheral pulses are intact. - Labs CBC & Chem 7: 05/22/22 06:43 05/22/22 06:43 Labs: Abnormal Lab Results - Last 24 Hours (Table) 05/21/22 05/21/22 05/21/22 Range/Units 12:28 15:46 19:51 RBC (3.80-5.40) m/uL Hgb (11.4-16.0) gm/dL Hct (34.0-46.0) % Lymphocytes # (1.0-4.8) k/uL Sodium 128 L (137-145) mmol/L Chloride (98-107) mmol/L Creatinine (0.52-1.04) mg/dL Glucose (74-99) mg/dL POC Glucose (mg/dL) 116 H 168 H (70-110) mg/dL Hemoglobin A1c (0.0-6.0) % 05/22/22 05/22/22 05/22/22 Range/Units 06:12 06:43 06:43 RBC 3.26 L (3.80-5.40) m/uL Hgb 10.8 L (11.4-16.0) gm/dL Hct 31.4 L (34.0-46.0) % Lymphocytes # 0.3 L (1.0-4.8) k/uL Sodium (137-145) mmol/L Chloride (98-107) mmol/L Creatinine (0.52-1.04) mg/dL Glucose (74-99) mg/dL POC Glucose (mg/dL) 112 H (70-110) mg/dL Hemoglobin A1c 6.8 H (0.0-6.0) % 05/22/22 05/22/22 Range/Units 06:43 11:15 RBC (3.80-5.40) m/uL Hgb (11.4-16.0) gm/dL Hct (34.0-46.0) % Lymphocytes # (1.0-4.8) k/uL Sodium 128 L (137-145) mmol/L Chloride 93 L (98-107) mmol/L Creatinine 0.46 L (0.52-1.04) mg/dL Glucose 114 H (74-99) mg/dL POC Glucose (mg/dL) 124 H (70-110) mg/dL Hemoglobin A1c (0.0-6.0) % Microbiology - Last 24 Hours (Table) 05/17/22 19:08 Blood Culture - Preliminary Blood No Growth after 96 hours Assessment and Plan Assessment: Hypovolemic hyponatremia, improving current sodium 128 Altered mental status consistent with acute metabolic encephalopathy, resolved COVID-19 infection, however she has no active pulmonary symptoms. Chest x-ray clear, on room air History of benign essential hypertension History of congestive heart failure, maintained on diuretics. History of type 2 diabetes. Coronary arteriosclerosis. Dyslipidemia. Multiple abrasions and bruises secondary to fall Plan: The patient was seen and evaluated Chest x-ray medications and labs reviewed Regular medical floor without telemetry Awaiting placement for subacute rehab We will continue to follow I have personally seen and examined the patient, performed the documentation and the assessment and plan as written. Number of minutes spent on the visit: 10.
--- NOTE | 2022-05-22 12:53 | CA ---
Transthoracic Echo Report Name: Ronel Scott Age: 82 Gender: F : 1940 Exam Date: 05/22/2022 08:02 Exam Location: [facility] Ht (in): 66 Wt (lb): 133 Ordering Physician: Sultana Platt MD Attending/Referring Phys: Nylon Operator Shirin Nash RDCS Procedure CPT: Indications: cadiomyopathy Cardiac Hx: Technical Quality: Fair Contrast 1: Total Dose (mL): Contrast 2: Total Dose (mL): MEASUREMENTS (Male / Female) Normal Values 2D ECHO LV Diastolic Diameter PLAX 4.7 cm 4.2 - 5.9 / 3.9 - 5.3 cm LV Systolic Diameter PLAX 4.2 cm IVS Diastolic Thickness 1.2 cm 0.6 - 1.0 / 0.6 - 0.9 cm LVPW Diastolic Thickness 1.4 cm 0.6 - 1.0 / 0.6 - 0.9 cm LV Relative Wall Thickness 0.6 RV Internal Dim ED PLAX 3.2 cm LA Systolic Diameter LX 3.7 cm 3.0 - 4.0 / 2.7 - 3.8 cm LA Volume 72.1 cm??? 18 - 58 / 22 - 52 cm??? M-MODE Aortic Root Diameter MM 3.6 cm MV E Point Septal Separation 0.6 cm AV Cusp Separation MM 2.2 cm DOPPLER AV Peak Velocity 153.8 cm/s AV Peak Gradient 9.5 mmHg AI Peak Velocity 365.9 cm/s AI Peak Gradient 53.6 mmHg AI Pressure Half Time 388.2 ms MV Area PHT 8.6 cm??? Mitral E Point Velocity 138.5 cm/s Mitral A Point Velocity 66.4 cm/s Mitral E to A Ratio 2.1 MV Deceleration Time 87.9 ms TR Peak Velocity 301.0 cm/s TR Peak Gradient 36.2 mmHg Right Ventricular Systolic Press 41.2 mmHg FINDINGS Left Ventricle Left ventricular ejection fraction is estimated at 15-20 %. Left ventricular cavity size normal. Mildly increased septal wall thickness. Moderately increased posterior wall thickness. Severely reduced global left ventricular systolic function. Right Ventricle Normal right ventricular size and function. Mild pulmonary hypertension. Right Atrium Normal right atrial size. Left Atrium Moderately increased left atrial volume. Mildly increased left atrial area. Mitral Valve Mitral annular calcification. Trace to mild mitral regurgitation. Aortic Valve Focal thickening of the aortic valve cusps. Mild aortic regurgitation. Tricuspid Valve Mild tricuspid regurgitation. Pulmonic Valve Pulmonic valve not well visualized. Pericardium Normal pericardium. No pericardial or pleural effusion. Aorta Normal size aortic root and proximal ascending aorta. CONCLUSIONS Severe LV dysfunction Increased LV mass Previewed by: Dr. Suman Salas MD (Electronically Signed) Final Date: 22 May 2022 12:52
[2022-05-22 16:23] LABS: Glucose,Whole Blood 162 mg/dL (70-110)
[2022-05-22 20:33] LABS: Glucose,Whole Blood 101 mg/dL (70-110)
[2022-05-22] MEDS: ATORVASTATIN 20 MG TAB PO SCH (21:35)
[2022-05-22] MEDS: ACETAMINOPHEN TAB 500 MG TAB PO PRN (21:47)
[2022-05-23] MEDS: FUROSEMIDE 10 MG/ML 2 ML VIAL IV SCH (01:21)
--- NOTE | 2022-05-23 06:22 | PN ---
PROGRESS NOTE SUBJECTIVE: An 82-year-old white female with multiple abrasions on her face due to falling. She remains on diabetic medicines, hypertension medicines. She has weakness and fatigue. She is ready to go to the [facility] for physical therapy once cleared by business leader and netting inspector. She was started on Aldactone and Lasix. She came with severe hypothermia to the ER, but she is now much better. Sodium is up to 121. She had severe hyponatremia on admission, which is greatly improved. She is sitting up in the chair. She has given appropriate answers. Sodium is 128. White count is 6, hemoglobin is 10. BUN is 14, creatinine 0.46. Continues on vitamin supplements. Chest x-ray, no pulmonary process, no evidence of COVID. OBJECTIVE: VITAL SIGNS: Temperature 97.5, pulse 84, respiratory rate 16 to 18, blood pressure 113/54, O2 sat 96. CARDIOVASCULAR: S1, S2. HEMATOLOGY: Negative for Homans. GI: Soft. NEUROLOGIC: Alert and oriented x3. ASSESSMENT: 1. Hyponatremia. 2. Severe hypothermia. 3. Hypovolemic hyponatremia. 4. Altered mental status. 5. COVID-19 infection. 6. History of benign essential hypertension. 7. History of congestive heart failure. 8. Type 2 diabetes mellitus. 9. Coronary arteriosclerosis. 10.Dyslipidemia. 11.Multiple abrasions. PLAN: Subacute rehab. Continue current treatments. Wait for Dr. Miles to clear her from the hyponatremia standpoint. Switch to oral medicines. Prognosis guarded. MMODL / IJN: [id number] /
[2022-05-23] MEDS: carvediloL 6.25 MG TAB PO SCH (06:36)
[2022-05-23] MEDS: metFORMIN 500 MG TAB PO SCH (06:36)
[2022-05-23 07:06] LABS: Glucose,Whole Blood 115 mg/dL (70-110)
[2022-05-23 07:42] LABS: Basophils % (A) 0 %; Eosinophils # (A) 0.1 k/uL (0-0.7); Eosinophils % (A) 1 %; HCT 27.7 % (34.0-46.0); HGB 9.5 gm/dL (11.4-16.0); Lymphocytes # (A) 0.3 k/uL (1.0-4.8); Lymphocytes % (A) 6 %; MCHC 34.3 g/dL (31.0-37.0); MCV 96.2 fL (80.0-100.0); Mean Platelet Volume 7.5; Monocytes # (A) 0.4 k/uL (0-1.0); Monocytes % (A) 9 %; Neutrophils # (A) 4.1 k/uL (1.3-7.7); Neutrophils % (A) 80 %; Platelet Count 373 k/uL (150-450); RBC 2.88 m/uL (3.80-5.40); RDW 12.7 % (11.5-15.5); WBC 5.1 k/uL (3.8-10.6)
[2022-05-23 07:47] LABS: ALT 27 U/L (4-34); AST 20 U/L (14-36); African American GFR (CKD) >90 (>60 ml/min/1.73 sqM); Albumin 2.8 g/dL (3.5-5.0); Alkaline Phosphatase 54 U/L (38-126); Anion Gap 6 mmol/L; Blood Urea Nitrogen 22 mg/dL (7-17); Calcium 8.4 mg/dL (8.4-10.2); Carbon Dioxide 29 mmol/L (22-30); Chloride 93 mmol/L (98-107); Glucose 108 mg/dL (74-99); Magnesium 1.7 mg/dL (1.6-2.3); Non-African American GFR(CKD) 90 (>60 ml/min/1.73 sqM); Potassium 4.1 mmol/L (3.5-5.1); Sodium 128 mmol/L (137-145); Total Bilirubin 0.9 mg/dL (0.2-1.3); Total Protein 4.7 g/dL (6.3-8.2)
[2022-05-23] MEDS: ZINC SULFATE 220 MG CAP PO SCH (10:15)
[2022-05-23] MEDS: ASCORBIC ACID 500 MG TAB PO SCH (10:15)
[2022-05-23] MEDS: CLOPIDOGREL 75 MG TAB PO SCH (10:15)
[2022-05-23] MEDS: FAMOTIDINE 20 MG TAB PO SCH (10:15)
[2022-05-23] MEDS: FOLIC ACID 1 MG TAB PO SCH (10:15)
[2022-05-23] MEDS: lisinopriL 10 MG TAB PO SCH (10:16)
[2022-05-23] MEDS: SODIUM CHLORIDE TAB 1 GM TAB PO SCH (10:17)
[2022-05-23] MEDS: CHOLECALCIFEROL 10 MCG (400 IU) TABLET PO SCH (10:17)
[2022-05-23 10:48] VITALS: BMI 21.5
--- NOTE | 2022-05-23 11:20 | P.PN ---
Subjective Progress Note Date: 05/23/22 This is an 82-year-old female with history of hypertension, coronary artery disease, diabetes, poor historian, patient presented to the ER yesterday shortly after she was found by her neighbor in her garage, on the ground, attempting to crawl, and she had wet clothing and multiple areas of bruises throughout her whole body, and superficial abrasions. Apparently the patient was very confused, she was hypothermic when she arrived to the ER with a temp of 84. Patient was also noted to have low sodium of 113. Patient is normally on diuretics including Lasix 20 mg daily and on Aldactone 25 mg daily, she is also on multiple cardiac meds including Lipitor, Plavix, Coreg, and Zestril. At any rate it is not clear how long with the patient down in the garage, however considering her altered mental status she had extensive scanning of her brain, and all came back nondiagnostic. Patient also had a CT angiogram of the head, came back unremarkable. Patient was admitted to the ICU mostly because of her hypothermia and her hyponatremia. I felt that her hyponatremia is hypovolemic in nature, patient had low sodium of 113, and she had a relatively elevated urine osmolality. Initially the patient was given 3% saline, however as she was noted to have relatively low blood pressure, we recommended stopping the 3% saline and she was given a liter of lactated Ringer's. Then her lactated Ringer's was changed to 75 mL per hour and follow up sodium this morning is 116. Patient will remain on lactated Ringer's at 50 mL per hour, and we will continue to monitor her sodium, no more 3% saline was given. In the meantime patient was tested for COVID-19 infection, and sure enough she tested positive. Supposedly the patient is vaccinated and boosted. Patient had no symptoms of shortness of breath, she had no pulmonary symptoms whatsoever, and her chest x- ray is basically relatively unremarkable. Hence this was an incidental COVID-19 positive finding Patient was reevaluated today on 05/19/22, remains in the ICU, sodium remains low, today is 117, hence the patient was seen by nephrology and she is back on 3% saline. She is also on oral sodium tablets. Clinically the patient is feeling better, she is not in any distress, she continues to hold relatively low temperature, today I'm recommending thyroid profile and a serum cortisol level. Her cortisol level came back normal/12 and her thyroid profile is pending her WBC count is 4.1 hemoglobin is 9.5, electrolytes are normal except for low sodium of 117 renal profile is normal Reevaluated today on 05/20/22, patient is gradually improving, her sodium is up to 121, this is being addressed by nephrology on the case. Pulmonary-workman the patient is not in any distress, her mentation is significantly improved. And I believe the COVID-19 infection is rather incidental. Patient does not have any symptoms to suggest COVID-19 pneumonia. Hence I'm planning to transfer the patient out of the ICU to a regular medical floor today. Labs from today were all reviewed renal profile is normal BUN is 12 creatinine 0.45, bicarb is 27 and sodium is 121 Reevaluated today on 05/21/22, patient is doing well, received 3% saline overnight, and now her sodium is 125. Overall the patient is doing great, she is alert oriented 3, does not seem to be confused one bit. Patient is now on overflow, she could be transferred to a regular medical floor once a bed is available. Supposedly the patient has been on diuretics for LV dysfunction, I have not seen an echocardiogram on this patient after reviewing previous records, hence I'm recommending an echocardiogram on this patient to assess LV function. Patient has been receiving diuretics by nephrology, and her sodium has been fluctuating all over the place. At any rate I believe it is safe enough to transfer the patient out of the ICU once a bed is available. Pulmonary-workman remains on room air, she is not in any distress. Blood pressure is marginal at her blood pressure medication is presently on hold. Even her Lasix was put on hold earlier today The patient is seen 05/22/2022 in follow-up in the intensive care unit. She remains regular medical floor overflow. She is sitting up in a chair at the bedside. Awake and alert in no acute distress. Maintaining O2 saturations in the 90s on room air. No IV fluids. Current sodium is 128. White count 6.0. Hemoglobin 10.0. BUN 14. Creatinine 0.46. Potassium 3.9. Kristopher 114. She is continued on vitamin supplements. Chest x-ray shows no acute pulmonary process. No evidence of CoVID pneumonia. The patient is seen today 05/23/2022 in follow-up in the intensive care unit. She has her regular medical floor overflow. She is currently awake and alert resting comfortably in bed. Denies any worsening shortness of breath, cough or congestion. She is maintaining O2 saturations in the 90s on 4 L/m per nasal cannula. No IV fluids. She's afebrile. Hemodynamically stable. Sodium remains stable at 128. Potassium 4.1. BUN 22. Creatinine 0.49. White count 5.1. Hemoglobin 9.5. She remains on vitamin supplements. Objective - Vital Signs Vital signs: Vital Signs Temp 98.6 F 05/23/22 02:00 Pulse 88 05/23/22 02:00 Resp 14 05/23/22 02:00 BP 118/73 05/23/22 02:00 Pulse Ox 97 05/23/22 02:00 FiO2 Intake & Output 05/22/22 05/23/22 05/23/22 18:59 06:59 18:59 Intake Total 550 240 Output Total 800 450 Balance -250 -210 Weight 60.5 kg Intake: Oral 550 240 Output: Urine 800 450 Other: Voiding Method Indwelling Catheter Indwelling Catheter - Exam GENERAL EXAM: Alert, pleasant 82-year-old female, on 4 L nasal cannula, comfortable in no apparent distress. HEAD: Normocephalic. EYES: Normal reaction of pupils, equal size. NOSE: Clear with pink turbinates. THROAT: No erythema or exudates. NECK: No masses, no JVD. CHEST: No chest wall deformity. LUNGS: Equal air entry with no crackles, wheeze, rhonchi or dullness. CVS: S1 and S2 normal with no audible murmur, regular rhythm. ABDOMEN: No hepatosplenomegaly, normal bowel sounds, no guarding or rigidity. SPINE: No scoliosis or deformity SKIN: No rashes CENTRAL NERVOUS SYSTEM: No focal deficits, tone is normal in all 4 extremities. EXTREMITIES: There is no peripheral edema. No clubbing, no cyanosis. Peripheral pulses are intact. - Labs CBC & Chem 7: 05/23/22 06:49 05/23/22 06:49 Labs: Abnormal Lab Results - Last 24 Hours (Table) 05/22/22 05/22/22 05/22/22 Range/Units 06:43 11:15 16:21 RBC (3.80-5.40) m/uL Hgb (11.4-16.0) gm/dL Hct (34.0-46.0) % Lymphocytes # (1.0-4.8) k/uL Sodium (137-145) mmol/L Chloride (98-107) mmol/L BUN (7-17) mg/dL Creatinine (0.52-1.04) mg/dL Glucose (74-99) mg/dL POC Glucose (mg/dL) 124 H 162 H (70-110) mg/dL Hemoglobin A1c 6.8 H (0.0-6.0) % Total Protein (6.3-8.2) g/dL Albumin (3.5-5.0) g/dL 05/22/22 05/23/22 05/23/22 Range/Units 16:25 06:49 06:49 RBC 2.88 L (3.80-5.40) m/uL Hgb 9.5 L (11.4-16.0) gm/dL Hct 27.7 L (34.0-46.0) % Lymphocytes # 0.3 L (1.0-4.8) k/uL Sodium 127 L 128 L (137-145) mmol/L Chloride 93 L (98-107) mmol/L BUN 22 H (7-17) mg/dL Creatinine 0.49 L (0.52-1.04) mg/dL Glucose 108 H (74-99) mg/dL POC Glucose (mg/dL) (70-110) mg/dL Hemoglobin A1c (0.0-6.0) % Total Protein 4.7 L (6.3-8.2) g/dL Albumin 2.8 L (3.5-5.0) g/dL 05/23/22 Range/Units 07:04 RBC (3.80-5.40) m/uL Hgb (11.4-16.0) gm/dL Hct (34.0-46.0) % Lymphocytes # (1.0-4.8) k/uL Sodium (137-145) mmol/L Chloride (98-107) mmol/L BUN (7-17) mg/dL Creatinine (0.52-1.04) mg/dL Glucose (74-99) mg/dL POC Glucose (mg/dL) 115 H (70-110) mg/dL Hemoglobin A1c (0.0-6.0) % Total Protein (6.3-8.2) g/dL Albumin (3.5-5.0) g/dL Microbiology - Last 24 Hours (Table) 05/17/22 19:08 Blood Culture - Preliminary Blood No Growth after 120 hours Assessment and Plan Assessment: Hypovolemic hyponatremia, improving current sodium 128 Altered mental status consistent with acute metabolic encephalopathy, resolved COVID-19 infection, however she has no active pulmonary symptoms. Chest x-ray clear History of benign essential hypertension History of congestive heart failure, maintained on diuretics. History of type 2 diabetes. Coronary arteriosclerosis. Dyslipidemia. Multiple abrasions and bruises secondary to fall Plan: The patient was seen and evaluated Cleared for discharge from the pulmonary standpoint Awaiting placement for subacute rehab I have personally seen and examined the patient, performed the documentation and the assessment and plan as written. Number of minutes spent on the visit: 10.
--- NOTE | 2022-05-23 11:29 | P.PN ---
Subjective Patient is seen in follow-up for hyponatremia. Resting in bed. Sodium level stable at 128. Receiving IV Lasix. Nonoliguric. Hemodynamically stable. Oral intake fair per nurse. Vital signs are stable. General: Awake. HEENT: Bruising noted. LUNGS: Breath sounds decreased. HEART: Rate and Rhythm are regular. ABDOMEN: Soft, no distention. EXTREMITITES: Generalized bruising noted. Trace edema. Objective - Vital Signs Vital signs: Vital Signs Temp 98.8 F 05/23/22 08:00 Pulse 86 05/23/22 08:00 Resp 22 05/23/22 08:00 BP 132/68 05/23/22 08:00 Pulse Ox 98 05/23/22 08:00 FiO2 Intake & Output 05/22/22 05/23/22 05/23/22 18:59 06:59 18:59 Intake Total 550 240 Output Total 800 450 Balance -250 -210 Weight 60.5 kg Intake: Oral 550 240 Output: Urine 800 450 Other: Voiding Method Indwelling Catheter Indwelling Catheter - Labs CBC & Chem 7: 05/23/22 06:49 05/23/22 06:49 Labs: Abnormal Lab Results - Last 24 Hours (Table) 05/22/22 05/22/22 05/22/22 Range/Units 06:43 16:21 16:25 RBC (3.80-5.40) m/uL Hgb (11.4-16.0) gm/dL Hct (34.0-46.0) % Lymphocytes # (1.0-4.8) k/uL Sodium 127 L (137-145) mmol/L Chloride (98-107) mmol/L BUN (7-17) mg/dL Creatinine (0.52-1.04) mg/dL Glucose (74-99) mg/dL POC Glucose (mg/dL) 162 H (70-110) mg/dL Hemoglobin A1c 6.8 H (0.0-6.0) % Total Protein (6.3-8.2) g/dL Albumin (3.5-5.0) g/dL 05/23/22 05/23/22 05/23/22 Range/Units 06:49 06:49 07:04 RBC 2.88 L (3.80-5.40) m/uL Hgb 9.5 L (11.4-16.0) gm/dL Hct 27.7 L (34.0-46.0) % Lymphocytes # 0.3 L (1.0-4.8) k/uL Sodium 128 L (137-145) mmol/L Chloride 93 L (98-107) mmol/L BUN 22 H (7-17) mg/dL Creatinine 0.49 L (0.52-1.04) mg/dL Glucose 108 H (74-99) mg/dL POC Glucose (mg/dL) 115 H (70-110) mg/dL Hemoglobin A1c (0.0-6.0) % Total Protein 4.7 L (6.3-8.2) g/dL Albumin 2.8 L (3.5-5.0) g/dL Microbiology - Last 24 Hours (Table) 05/17/22 19:08 Blood Culture - Preliminary Blood No Growth after 120 hours Assessment and Plan Plan: Assessment: 1. Hyponatremia. Slightly hypervolemic. 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 Urine sodium 77 and urine osmolality 477. TSH and cortisol normal. Status post 3% this admission. Sodium level 128 today. Patient also admits to drinking at least 64 ounces of water daily at home. 2. Status post fall. 3. COVID-19 infection. 4. Benign hypertension. Stable. 5. Hypomagnesemia from poor intake. Replaced. 6. Acute systolic CHF with ejection fraction of 15-20%. Plan: Maintain 1200 mL fluid resection. Maintain sodium chloride tabs - decrease to once daily due to low EF. Repeat samsca today. Hold Lasix. No evidence of fluid overload on chest x-ray. Encouraged oral intake, particularly protein. Hold antihypertensives for systolic blood pressure less than 120. Repeat urine studies.
[2022-05-23 11:32] LABS: Glucose,Whole Blood 194 mg/dL (70-110)
[2022-05-23] MEDS ORDERED: TOLVAPTAN 15 MG 1/2 TABLET PO ONE (12:00)
[2022-05-23 14:21] VITALS: BP 109/64; PULSE 90; RESP 20; TEMP 98.4
[2022-05-24] MEDS ORDERED: SODIUM CHLORIDE TAB 1 GM TAB PO SCH (09:00)
--- NOTE | 2022-05-24 12:26 | DS ---
DISCHARGE SUMMARY DISCHARGE MEDICATIONS: 1. Folic acid 1 mg daily. 2. Sodium chloride 1 g . 3. Xanax 0.5 mg q.8 hours p.r.n. 4. Artificial Tears in both eyes every 4 hours p.r.n. 5. Metformin 500 b.i.d. 6. b.i.d. 7. daily. 8. Pepcid 20 mg b.i.d. 9. Acetaminophen 1000 mg q.6 hours p.r.n. 10.Vitamin C 500 daily. 11.D3 10 mcg p.o. daily. 12.Plavix 75 mg daily. 13.Lipitor 20 mg daily. 14.Carvedilol 6.25 b.i.d. 15.Lasix 20 mg daily. 16.Zestril 10 mg daily. CONDITION: Stable. PROGNOSIS: Guarded. FOLLOWUP: Follow up at [facility], Dr. Eddie Donato. LABORATORY DATA: Hemoglobin on discharge 9.5, white count 5.1. Sodium was 128, potassium 4.1, BUN is 22, creatinine 0.49. DISCHARGE DIAGNOSES: 1. Hypovolemic hyponatremia. 2. Severe hypothermia on admission. 3. Altered mental status, consistent with acute metabolic encephalopathy. 4. COVID-19 infection. 5. Benign hypertension. 6. History of congestive heart failure. 7. Abrasions and contusions from a fall and facial bruising. 8. Type 2 diabetes mellitus. 9. Coronary atherosclerosis. 10.Dyslipidemia. The patient was cleared from discharge; Pulmonary, Cardiology, Infectious Disease. PT/OT [facility] will be necessary. Echo during her stay showed 15% to 20% ejection fraction for which she follows up with Cardiology. Prognosis is extremely guarded due to her condition of protein-calorie malnutrition, severe hyponatremia, systolic congestive heart failure, recent COVID with generalized weakness and gait dysfunction. Follow up with at [facility]. Diet as tolerated. Condition stable. Prognosis guarded. She will have to go home on 2 L oxygen. She is currently saturating at 98% on 2 L. She will continue on 2 L of oxygen and wean off as tolerated. MMODL / IJN: [id number] /
--- NOTE | 2022-05-25 12:30 | CDI ---
Documentation Clarification Form Date: 05/25/22 From: Erika Spaulding Admit Date: 05/17/2022 10:05:00 PM Patient Name: Ronel Scott Visit Number: [id number] Discharge Date: 05/23/2022 03:07:00 PM ATTENTION: The Clinical Documentation Specialists (CDI) and [facility] Coding Staff appreciate your assistance in clarifying documentation. Please respond to the clarification below the line at the bottom and electronically sign. The CDI & [facility] Coding staff will review the response and follow-up if needed. Please note: Queries are made part of the Legal Health Record. If you have any questions, please contact the author of this message via ITS. Dr. Eddie Donato, Protein-calorie malnutrition is documented in the history and physical and discharge summary. Additional clarification regarding the severity of malnutrition is requested. History/Risk Factors: hypothermia, metabolic encephalopathy, COVID 19, acute systolic CHF w HTN, hypotension, T2DM W hyperglycemia, multiple abrasions Clinical Indicators: Generalized weakness and gait dysfunction. Poor appetite. Eating 60-75% of meals, consistent CHO, healthy heart diet, 1200 ml fluid restriction. TOTAL PROTEIN: 5.1,4.7, 4.1, 4.5, 4.7, 4.7 ALBUMIN: 3.1, 2.9, 2.4, 2.7, 2.8, 2.8 Current BMI: 21.5 Treatment: Increased PO intake from 50-75%. Eating 60-75% of meals, consistent CHO, healthy heart diet, 1200 ml fluid restriction. Glucerna Please clarify the type of malnutrition, if known: [ ] Mild Protein-Calorie Malnutrition [ ] Moderate Protein-Calorie Malnutrition [ ] Severe Protein-Calorie Malnutrition [ ] Malnutrition, unspecified [ ] Unable to Determine MTDD
--- NOTE | 2022-05-27 14:29 | PN ---
PROGRESS NOTE Moderate protein-calorie malnutrition. MMODL / IJN: [id number] /
--- NOTE | 2022-05-30 08:09 | CDI ---
Documentation Clarification Form Date: 05/30/22 From: Erika Spaulding Admit Date: 05/17/2022 10:05:00 PM Patient Name: Ronel Scott Visit Number: [id number] Discharge Date: 05/23/2022 03:07:00 PM ATTENTION: The Clinical Documentation Specialists (CDI) and [facility] Coding Staff appreciate your assistance in clarifying documentation. Please respond to the clarification below the line at the bottom and electronically sign. The CDI & [facility] Coding staff will review the response and follow-up if needed. Please note: Queries are made part of the Legal Health Record. If you have any questions, please contact the author of this message via ITS. Dr. Eddie Donato, Conflicting documentation has been found in the medical record. As attending physician, please provide clarification. 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 Per your documentation the patient has severe hyponatremia. History/Risk Factors: HTN w acute systolic CHF, mod PCM, hypothermia, COVID-19, T2DM w hyperglycemia Clinical Indicators: Hyponatremia, slightly hypervolemic. 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 Urine sodium 77 and urine osmolality 477. TSH and cortisol normal. Treatment: 1200 ml fluids, maintain sodium chloride tabs, add IV Lasix 20 mg twice daily, hold antihypertensives for systolic BP less than 120, echocardiogram Please clarify which diagnosis is most appropriate: [ ] SIADH [ ] Hyponatremia [ ] Unable to determine MTDD
--- NOTE | 2022-06-05 07:02 | PN ---
PROGRESS NOTE Hyponatremia, SIADH. MMODL / IJN: [id number] /
== END 2022-05-23 15:07 | DRG 643 ==
LOC: EC 18:26 → 2SICU 22:05
PROVIDERS: ADMIT Family Medicine; ATTEND Family Medicine
DX: E22.2 Syndrome of inappropriate secretion of antidiuretic hormone (principal); G93.41 Metabolic encephalopathy; I50.21 Acute systolic (congestive) heart failure; U07.1 COVID-19; E44.0 Moderate protein-calorie malnutrition; T68.XXXA Hypothermia, initial encounter; I11.0 Hypertensive heart disease with heart failure; I95.9 Hypotension, unspecified; E11.65 Type 2 diabetes mellitus with hyperglycemia; I48.91 Unspecified atrial fibrillation; S81.812A Laceration without foreign body, left lower leg, initial encounter; E86.1 Hypovolemia; E83.42 Hypomagnesemia; E86.0 Dehydration; S00.81XA Abrasion of other part of head, initial encounter; Z68.21 Body mass index [BMI] 21.0-21.9, adult; I25.10 Atherosclerotic heart disease of native coronary artery without angina pectoris; E78.5 Hyperlipidemia, unspecified; I44.7 Left bundle-branch block, unspecified; R26.9 Unspecified abnormalities of gait and mobility; Z79.02 Long term (current) use of antithrombotics/antiplatelets; Z79.84 Long term (current) use of oral hypoglycemic drugs; Z79.899 Other long term (current) drug therapy; Z71.3 Dietary counseling and surveillance; Z88.8 Allergy status to other drugs, medicaments and biological substances; W01.0XXA Fall on same level from slipping, tripping and stumbling without subsequent striking against object, initial encounter
CPT/HCPCS: 36415; 70450; 70496; 70498; 71045; 72125; 80048; 80053; 81001; 82533; 82550; 82553; 82570; 82607; 82746; 83036; 83735; 83930; 83935; 84133; 84295; 84300; 84443; 84484; 85025; 85610; 85730; 87040; 87635; 93005; 93306; 96361; 96365; 99291